=== PATIENT | male | born 1960 | race Caucasian/White ===

== ENCOUNTER 2020-03-07 08:37 | Outpatient (REF) | payer OTHER, SELFPAY | END 2020-03-07 08:38 | disposition home or self-care (01) | LOC: HO.HMGCLDS 08:37 | PROVIDERS: PCP Internal Medicine; Visit Provider Internal Medicine | DX: Z20.828 Contact with and (suspected) exposure to other viral communicable diseases (principal) | CPT/HCPCS: C9803; U0003 ==

== ENCOUNTER 2020-04-03 08:04 | Outpatient (REF) | payer OTHER, SELFPAY ==
[2020-04-03 11:27] LABS: Hematocrit 41.5 % (42-52); Hemoglobin 13.9 g/dl (14.0-18.0); Mean Corpuscular HGB Conc 33.5 g/dl (31.0-36.0); Mean Corpuscular Hemoglobin 30.3 pg (27.0-33.0); Mean Corpuscular Volume 90.6 fL (80-98); Mean Platelet Volume 10.6 fL (9.4-12.4); Platelet Count 250 X10*3/uL (160-400); Red Blood Count 4.58 X10*6/uL (4.60-5.80); Red Cell Distribution Width 12.4 % (11.0-16.0)
[2020-04-03 11:44] LABS: Alanine Aminotransferase 23 U/L (0-40); Anion Gap 11 (12-20); Aspartate Amino Transferase 20 U/L (5-37); Blood Urea Nitrogen 16 mg/dL (9-16); Calcium 9.3 mg/dL (8.4-10.2); Carbon Dioxide 28 mmol/L (22-29); Chloride 102 mmol/L (96-108); Cholesterol 200 mg/dL; Estimated Glomerular Filt Rate > 60; Glucose Fasting 103 mg/dL (60-99); HDL Cholesterol 34 mg/dL; LDL Cholesterol Calculated 104 mg/dl; Potassium 4.8 mmol/l (3.3-5.1); Sodium 136 mmol/L (135-145); Triglycerides 311 mg/dL
[2020-04-03 12:03] LABS: Estimated Average Glucose 123 mg/dL; Hemoglobin A1c % 5.9 %
[2020-04-04 07:27] LABS: LDL Cholesterol Direct 113 mg/dL (<100)
== END 2020-04-03 08:05 | disposition home or self-care (01) ==
LOC: HO.HMGCLDS 08:04
PROVIDERS: PCP Internal Medicine; Visit Provider Internal Medicine
DX: E11.9 Type 2 diabetes mellitus without complications (principal); E78.2 Mixed hyperlipidemia; F41.1 Generalized anxiety disorder; I10 Essential (primary) hypertension; D51.0 Vitamin B12 deficiency anemia due to intrinsic factor deficiency
CPT/HCPCS: 36415; 80048; 80061; 83036; 83721; 84450; 84460; 85027

== ENCOUNTER 2020-09-12 07:05 | Outpatient (REF) | payer OTHER, SELFPAY ==
[2020-09-12 12:31] LABS: Estimated Average Glucose 120 mg/dL; Hemoglobin A1c % 5.8 %
[2020-09-12 12:37] LABS: Creatinine Urine 116.48 mg/dL; Microalbum/Creatinine Ratio Ur 112.4 ug/mg cr
[2020-09-12 12:40] LABS: Cholesterol 342 mg/dL
[2020-09-12 12:43] LABS: Alanine Aminotransferase 21 U/L (0-40); Albumin Level 4.4 g/dL (3.5-5.0); Alkaline Phosphatase 54 U/L (39-117); Anion Gap 18 (12-20); Aspartate Amino Transferase 18 U/L (5-37); Bilirubin Total 0.4 mg/dL (0.0-1.0); Blood Urea Nitrogen 21 mg/dL (9-16); Calcium 9.5 mg/dL (8.4-10.2); Carbon Dioxide 22 mmol/L (22-29); Chloride 103 mmol/L (96-108); Estimated Glomerular Filt Rate > 60; Glucose Fasting 108 mg/dL (60-99); Potassium 4.9 mmol/L (3.3-5.1); Sodium 138 mmol/L (135-145); Total Protein 7.4 g/dL (6.5-8.0)
[2020-09-12 13:03] LABS: Vitamin D 25-OH Total 40.7 ng/mL (>30)
[2020-09-12 13:15] LABS: HDL Cholesterol 26 mg/dL; Triglycerides 2318 mg/dL
[2020-09-12 14:01] LABS: Folate 14.5 ng/mL (> or = 4.0); Vitamin B12 522 pg/mL (200-900)
== END 2020-09-12 07:06 | disposition home or self-care (01) ==
LOC: HO.HMGCLDS 07:05
PROVIDERS: PCP Internal Medicine; Visit Provider Internal Medicine
DX: D51.0 Vitamin B12 deficiency anemia due to intrinsic factor deficiency (principal); E11.9 Type 2 diabetes mellitus without complications; E78.2 Mixed hyperlipidemia; F41.1 Generalized anxiety disorder; I10 Essential (primary) hypertension
CPT/HCPCS: 36415; 80053; 80061; 82043; 82306; 82607; 82746; 83036

== ENCOUNTER 2021-03-12 07:21 | Outpatient (REF) | payer OTHER, SELFPAY ==
[2021-03-12 12:21] LABS: Alanine Aminotransferase 28 U/L (0-40); Anion Gap 14 (12-20); Aspartate Amino Transferase 19 U/L (5-37); Blood Urea Nitrogen 16 mg/dL (9-16); Calcium 9.5 mg/dL (8.4-10.2); Carbon Dioxide 25 mmol/L (22-29); Chloride 104 mmol/L (96-108); Cholesterol 240 mg/dL; Estimated Glomerular Filt Rate > 60; Glucose Fasting 131 mg/dL (60-99); HDL Cholesterol 36 mg/dL; LDL Cholesterol Calculated 147 mg/dl; Potassium 4.3 mmol/L (3.3-5.1); Sodium 139 mmol/L (135-145); Triglycerides 287 mg/dL
[2021-03-12 12:53] LABS: Estimated Average Glucose 123 mg/dL; Hemoglobin A1c % 5.9 %
== END 2021-03-12 07:22 | disposition home or self-care (01) ==
LOC: HO.HMGCLDS 07:21
PROVIDERS: PCP Internal Medicine; Visit Provider Internal Medicine
DX: E78.2 Mixed hyperlipidemia (principal); I10 Essential (primary) hypertension; E11.9 Type 2 diabetes mellitus without complications
CPT/HCPCS: 36415; 80048; 80061; 83036; 84450; 84460

== ENCOUNTER 2022-03-28 07:02 | Outpatient (REF) | payer OTHER, SELFPAY ==
[2022-03-28 11:56] LABS: Estimated Average Glucose 123 mg/dL; Hemoglobin A1c % 5.9 %
[2022-03-28 12:10] LABS: Creatinine Urine 105.97 mg/dL; Microalbum/Creatinine Ratio Ur 70.7 ug/mg cr
[2022-03-28 12:42] LABS: Alanine Aminotransferase 23 U/L (0-40); Anion Gap 12 (12-20); Aspartate Amino Transferase 17 U/L (5-37); Blood Urea Nitrogen 17 mg/dL (9-16); Calcium 9.6 mg/dL (8.4-10.2); Carbon Dioxide 28 mmol/L (22-29); Chloride 103 mmol/L (96-108); Cholesterol 197 mg/dL; Estimated Glomerular Filt Rate > 60; Glucose Fasting 116 mg/dL (60-99); HDL Cholesterol 40 mg/dL; LDL Cholesterol Calculated 96 mg/dl; Potassium 4.5 mmol/L (3.3-5.1); Sodium 138 mmol/L (135-145); Triglycerides 309 mg/dL
== END 2022-03-28 07:03 | disposition home or self-care (01) ==
LOC: HO.HMGCLDS 07:02
PROVIDERS: PCP Internal Medicine; Visit Provider Internal Medicine
DX: E11.9 Type 2 diabetes mellitus without complications (principal); E78.2 Mixed hyperlipidemia; I10 Essential (primary) hypertension
CPT/HCPCS: 36415; 80048; 80061; 82043; 83036; 84450; 84460

== ENCOUNTER 2022-07-12 07:54 | Outpatient (REF) | payer OTHER, SELFPAY ==
[2022-07-12 12:21] LABS: Estimated Average Glucose 137 mg/dL; Hemoglobin A1c % 6.4 %
[2022-07-12 12:49] LABS: Alanine Aminotransferase 22 U/L (0-40); Anion Gap 13 (12-20); Aspartate Amino Transferase 19 U/L (5-37); Blood Urea Nitrogen 17 mg/dL (9-16); Calcium 9.6 mg/dL (8.4-10.2); Carbon Dioxide 28 mmol/L (22-29); Chloride 104 mmol/L (96-108); Cholesterol 181 mg/dL; Estimated Glomerular Filt Rate > 60; Glucose Fasting 120 mg/dL (60-99); HDL Cholesterol 33 mg/dL; LDL Cholesterol Calculated 103 mg/dl; Sodium 140 mmol/L (135-145); Triglycerides 228 mg/dL
[2022-07-12 12:57] LABS: Folate 11.6 ng/mL (> or = 4.0); PSA,Total (Free>4and<10) 0.99 ng/mL (0.00-4.00); Vitamin B12 651 pg/mL (200-900); Vitamin D 25-OH Total 50.6 ng/mL (>30)
== END 2022-07-12 07:55 | disposition home or self-care (01) ==
LOC: HO.HMGCLDS 07:54
PROVIDERS: PCP Internal Medicine; Visit Provider Internal Medicine
DX: Z00.01 Encounter for general adult medical examination with abnormal findings (principal); Z12.5 Encounter for screening for malignant neoplasm of prostate; D51.0 Vitamin B12 deficiency anemia due to intrinsic factor deficiency; E11.9 Type 2 diabetes mellitus without complications; E66.9 Obesity, unspecified; E78.2 Mixed hyperlipidemia; F41.1 Generalized anxiety disorder; G47.33 Obstructive sleep apnea (adult) (pediatric); I10 Essential (primary) hypertension; Z99.89 Dependence on other enabling machines and devices
CPT/HCPCS: 36415; 80048; 80061; 82306; 82607; 82746; 83036; 84153; 84450; 84460

== ENCOUNTER 2022-07-15 12:43 | Outpatient (AMB) | payer OTHER, SELFPAY ==
--- NOTE | 2022-07-15 12:57 | A.OFFPC_ITS ---
Vital Signs 07/15/22 13:13 Height 5 ft 8 in Weight 221 lb 4 oz BMI 33.6 BP 130/80 Blood Pressure Location Rt brachial Position Sitting Pulse 66 Pulse Source Pulse Oximeter Pulse Oximetry (%) 99 Oxygen Delivery Method Room Air Intake Visit Reasons: 2 month follow up HTN, Lipids Intake Note: Pt is here today for his 2 months f/u HTN and lipids Allergies amoxicillin Adverse Reaction (Mild, Verified 01/05/23 15:40) Stomach Upset Medication List - Last Reconciled 07/16/22 by Christy Rivera MD blood sugar diagnostic As directed cholecalciferol (vitamin D3) 50 mcg PO DAILY citalopram 20 mg PO DAILY cyanocobalamin (vitamin B-12) ER 1,000 mcg PO DAILY diclofenac potassium 50 mg PO TID PRN lisinopril 5 mg PO DAILY metformin 1,000 mg PO DAILY omega-3 acid ethyl esters 2 caps PO BID 90 days rosuvastatin 10 mg PO DAILY sildenafil 100 mg PO DAILY PRN Tobacco use date assessed: 07/15/22 HPI 2 month follow up HTN, Lipids HPI Details 62-year-old male here today for follow-u p on his blood pressure , diabetes mellitus and cholesterol levels. Has been compliant with taking his medications currently on lisinopril 5 mg daily, rosuvastatin 10 mg daily and Garfield 3 fatty acid supplements and metformin. Has been compliant with diet, and has no complaints at present time, except for occasional difficulty in maintaining penile erection during sexual intercourse. Requesting a prescription for sildenafil to try. [facility] Medical History Erectile dysfunction Obesity (BMI 30-39.9) RADHA on CPAP Generalized anxiety disorder Pernicious anemia Essential hypertension Type 2 diabetes mellitus without complication, with no history of insulin use Mixed dyslipidemia Surgical History Hx of colonoscopy H/O shoulder surgery History of cataract surgery History of carpal tunnel surgery Status post cervical discectomy Family History Father Diabetes mellitus Atherosclerotic coronary vascular disease Prostate cancer Social History Housing: House Alcohol intake: current Alcohol intake frequency: a few times a month Patient Tobacco Use Status: Former Tobacco user Years Smoked: 5 yrs e-Cigarette/Vaping Use: Never Used Substance Use Type: Marijuana service: No Current occupational status: disabled Cognitive needs: No Hearing needs: No Vision needs: No Questionnaire Thrive Questionnaire Date Thrive assessed: 05/17/22 AUDIT C Alcohol Use Questionnaire (AUDIT-C) 1. How often do you have a drink containing alcohol?: Never Total Score: 0 LESLIE-7 AMB Questionnaire LESLIE-7 Date LESLIE - 7 assessed: 05/17/22 Source: Developed by Drs. Rehan Shi, Lynda Booth, Kit Brush and colleagues, with an educational miesha from [employer]. Review of Systems Const Denies body aches, Denies fatigue, Denies fever(s) and Denies headache(s) Eyes Denies change in vision ENT Denies dizziness, Denies headache(s), Denies nasal congestion, Denies nasal discharge and Denies sore throat Card Denies chest pain, Denies lightheadedness, Denies palpitations and Denies dyspnea Resp Denies chest congestion, Denies cough, Denies dyspnea and Denies wheezing GI Denies abdominal pain, Denies change in bowel habits and Denies heartburn Denies dysuria, Denies urinary frequency and Denies urinary urgency Musc Denies back pain, Denies myalgias, Denies arthralgias, Denies joint swelling and Denies limited range of motion Skin/Breast Denies lesions and Denies rash Neuro Denies dizziness and Denies headache(s) Psych Reports no additional complaints Endo Denies fatigue, Denies polydipsia, Denies polyuria and Denies palpitations Pelon/Lymph Denies easy bruising Aller/Immun Denies seasonal rhinorrhea and Denies wheezing Physical exam (Primary Care) Vital Signs: Last Vital Signs Pulse 66 07/15/22 13:13 BP 130/80 07/15/22 13:13 Pulse Ox 99 07/15/22 13:13 Oxygen Delivery Method Room Air 07/15/22 13:13 BMI result Body Mass Index 33.6 Tobacco/Smoking Status: Tobacco use Status Tobacco use date assessed 07/15/22 07/15/22 12:59 Patient Tobacco Use Status Former Tobacco user 07/15/22 12:59 e-Cigarette/Vaping Use Never Used 07/15/22 12:59 Thrive Assessment: Date of Thrive Assessment Date Thrive assessed 05/17/22 07/15/22 12:59 Const General: cooperative, no acute distress, alert and Physically active Nutritional Appearance: obese Orientation/consciousness: patient oriented x3 Limitations: no limitations HENMT Head: Yes normocephalic Ears: hearing grossly normal bilaterally, external ears normal, TM's normal bilaterally and EAC's normal General nose exam: Normal external nose present and No nasal discharge present Face and sinus: Yes face symmetric Mouth: Normal oral and palatal mucosa present, tongue normal, oropharynx normal and moist mucous membranes Eyes Conjunctivae: conjunctivae normal Sclerae: sclerae normal Pupils: Equal, round and reactive pupils present EOM: EOMs intact bilaterally Neck Neck: Yes full ROM and Yes no lymphadenopathy Thyroid: Thyroid normal Carotids: normal carotid upstroke Lymphatic: no lymphadenopathy noted Chest Chest palpation & inspection: normal inspection of the chest Resp Effort & Inspection: normal respiratory effort and able to speak in complete sentences Auscultation: clear to auscultation bilaterally Cardio Jugular venous distension: no JVD Rate: regular rate Rhythm: regular rhythm Heart sounds: S1 normal heart sound present and S2 normal heart sound present GI Inspection: Yes normal to inspection and Yes other (presence of diastasis recti) Palpation (GI): Soft to palpation Auscultation: normal bowel sounds General: Yes no CVA tenderness Male General Exam: Yes normal external exam Back/Spine/Pelvis Back: no CVA tenderness and No back tenderness Thoracic/Lumbar Spine: thoraco-lumbar ROM normal and straight leg raise negative bilaterally Skin General skin exam: no rashes or lesions noted Neuro General: patient oriented x3, gait normal, tone normal, moves all extremities, Normal light touch and pain sensation, no focal motor deficits and CN's II-XI intact bilaterally Cranial nerves: Yes Equal, round and reactive pupils present Cognition (Neuro): normal cognition Gait exam (Neuro): Normal gait present Motor exam (neuro): 5/5 motor strength present throughout Extrem General: Yes normal to inspection, Yes full ROM, Yes no pedal edema and Yes normal gait Psych Appearance: grossly normal Mental Status: mental status grossly normal Speech and movement: Normal speech and movement present Affect: normal affect Thought process: Normal thought process present Results Reviewed Results Reviewed: Laboratory Tests 07/12/22 08:01 Estimat Average Glucose 137 Hemoglobin A1c % 6.4 Name: Beck Sagastume Age/Sex: 61/M : 1960 Unit#: [id number] Attend Dr: Chirsty Rivera MD Re07/12/22 Status: DEP [facility] Disch: SPEC : [id number] JAMAL: 07/12/22 STATUS: COMP REQ : [id number] RECD: 07/12/22-[address]: Christy Rivera MD COMP: 07/12/22-1256 ENTERED: 07/12/22-[address]: ORDERED: Met Prof Fast, AST, ALT, Lipid Panel, PSA W/ REFLEX, B12FOL, Vitamin D 2 Test Result Flag Reference Site Sodium 140 135-145 mmol/L Potassium 5.0 3.3-5.1 mmol/L CL 104 96-108 mmol/L CO2 28 22-29 mmol/L Gap 13 12-20 BUN 17 H 9-16 mg/dL Creat 0.96 0.5-1.4 mg/dL EGFR > 60 NOTE: For -Emirati individuals, multiply the result by 1.210. Chronic Kidney Disease: Estimated GFR < 60 mL/ min/1.73m2 Severe Kidney Disease: Estimated GFR < 15 mL/min/1.73m2 FBS 120 H 60-99 mg/dL A fasting glucose from 100-125 mg/dl is considered impaired (pre-diabetes). CA 9.6 8.4-10.2 mg/dL AST (GOT) 19 5-37 U/L ALT (GPT) 22 0-40 U/L Triglyceride 228 mg/dL Desirable Triglyceride: less than 150 mg/dL Borderline High Triglyceride 150-199 mg/dL High Triglyceride: 200-499 mg/dL Very High Triglyceride: greater than or equal to 5OO mg/dL Chol 181 mg/dL Desirable Cholesterol: less than 200 mg/dL Borderline High Cholesterol: 200-239 mg/dL High Cholesterol: greater than 239 mg/dL LDL Calculated 103 mg/dl Desirable LDL: less than 100 mg/dL Near Optimal/Above Optimal LDL: 110-129 mg/dL Borderline High LDL: 130-159 mg/dL High LDL: 160-189 mg/dL Very High LDL: greater than or equal to 190 mg/dL HDL 33 mg/dL Desirable HDL: greater than 40 mg/dL Note: This HDL assay may give artificially low results in patients with liver disease. PSA W/ REFLEX 0.99 0.00-4.00 ng/mL A Free PSA was not performed: The percentage of Free PSA can be used to enhance the differentiation of prostate cancer from benign prostatic disease in subjects whose PSA levels are between 4.0 and 10.0 ng/mL. For subjects whose PSA levels are below 4.0 or above 10.0 ng/mL, the risk of prostate cancer is determined on the basis of the PSA alone. Therefore the % Free PSA is recommended only for those subjects whose PSA levels are between 4.0 and 10.0 ng/mL. PSA methodology: Garza Alinity i Chemiluminescent Microparticle Immunoassay (CMIA) Vitamin B12 651 200-900 pg/mL NORMAL 200-900 PG/ML INDETERMINATE 160-199 PG/ML DEFICIENT < 160 PG/ML Folate 11.6 > or = 4.0 ng/mL Reference Values: > or = 4.0 ng/mL < 4.0 ng/mL suggests folate deficiency Methotrexate, aminopterin and folinic acid (leucovorin) are chemotherapeutic agents whose molecular structures are similar to folate; therefore, the [facility] folate assay cannot be used for patients using these drugs. Vit D 25-OH Tot 50.6 >30 ng/mL Health Based Reference Values* < 20 ng/mL Deficient 20-30 ng/mL Insufficient > 30 ng/mL Sufficient Assessment and Plan Assessment & Plan (1) Essential hypertension: Code(s): I10 - Essential (primary) hypertension Plan: Blood pressure at goal of less than 130/80. Continue with current medication. Reinforced importance of following a low sodium diet, getting regular exercise, and lowering stress levels. (2) Type 2 diabetes mellitus without complication, with no history of insulin use: Code(s): E11.9 - Type 2 diabetes mellitus without complications Plan: Recent lab results reviewed with patient, with sugar and hemoglobin A1c stable and at goal . Metformin and reinforced diabetic diet and regular exercise with patient. Counseled regarding importance of yearly diabetes retinopathy screening. Patient advised to inspect feet daily, for any signs of injury, callus or infection. Compliance with diet and regular exercise again stressed. Blood pressure goal is less than 130/80, goal LDL is less than 100 and goal hemoglobin A1c is less than 7% follow-up appointment made in-3--months, after fasting labs done. (3) Mixed dyslipidemia: Code(s): E78.2 - Mixed hyperlipidemia Plan: Reviewed recent fasting lipid profile with patient with LDL cholesterol at 103 mg/dL and low good cholesterol at 33 . Continue rosuvastatin and Garfield 3 fatty acids and past importance of following a low-cholesterol diet and getting regular exercise, at least 30 minutes 3 to 4 times a week. Advised patient to make healthy food choices, eat more fruits, vegetables, whole grains, wild caught fish and low-fat dairy. Limit amount of meat and fried or fatty food products, as well as processed foods and fast foods. Follow-up scheduled with repeat fasting lipid panel in 3 months. (4) Erectile dysfunction: Code(s): N52.9 - Male erectile dysfunction, unspecified Qualifiers: Erectile dysfunction type: unspecified Qualified Code(s): N52.9 - Male erectile dysfunction, unspecified Plan: Prescription sent for sildenafil 100 mg per tablet to take 1 tablet as needed 30 minutes to 1 hour prior to sexual intercourse Orders: Orders Hemoglobin A1c 3 Months N52.9 - Male erectile dysfunction, unspecified, E66.9 - Obesity, unspecified, I10 - Essential (primary) hypertension, E11.9 - Type 2 diabetes mellitus without complications, E78.2 - Mixed hyperlipidemia Lipid Panel 3 Months N52.9 - Male erectile dysfunction, unspecified, E66.9 - Obesity, unspecified, I10 - Essential (primary) hypertension, E11.9 - Type 2 diabetes mellitus without complications, E78.2 - Mixed hyperlipidemia Microalbumin, Random (w Creat) 3 Months N52.9 - Male erectile dysfunction, unspecified, E66.9 - Obesity, unspecified, I10 - Essential (primary) hypertension, E11.9 - Type 2 diabetes mellitus without complications, E78.2 - Mixed hyperlipidemia Testosterone, Free/Total 3 Months N52.9 - Male erectile dysfunction, un specified, E66.9 - Obesity, unspecified, I10 - Essential (primary) hypertension, E11.9 - Type 2 diabetes mellitus without complications, E78.2 - Mixed hyperlipidemia Alanine Aminotransferase 3 Months N52.9 - Male erectile dysfunction, unspecified, E66.9 - Obesity, unspecified, I10 - Essential (primary) hypertension, E11.9 - Type 2 diabetes mellitus without complications, E78.2 - Mixed hyperlipidemia Aspartate Amino Transferase 3 Months N52.9 - Male erectile dysfunction, unspecified, E66.9 - Obesity, unspecified, I10 - Essential (primary) hy pertension, E11.9 - Type 2 diabetes mellitus without complications, E78.2 - Mixed hyperlipidemia Medications: New sildenafil administer 30 minutes to 4 hours before activity 100 mg PO DAILY PRN 10 tabs 0RF sexual activity N52.9 - Male erectile dysfunction, unspecified Coding Level of Care Code Est Pt Level 4 (98672) Diagnoses Essential hypertension I10 Type 2 diabetes mellitus without complication, with no history of insulin use E11.9 Mixed dyslipidemia E78.2 Erectile dysfunction, unspecified erectile dysfunction type N52.9 Erectile dysfunction type: unspecified
[2022-07-15 13:13] VITALS: BP 130/80; PULSE 66; O2SAT 99; BMI 33.6
== END 2022-07-15 14:05 | disposition home or self-care (01) ==
LOC: HO.HMGC 12:43
PROVIDERS: PCP Internal Medicine; Visit Provider Internal Medicine
DX: I10 Essential (primary) hypertension (principal); E11.9 Type 2 diabetes mellitus without complications; E78.2 Mixed hyperlipidemia; N52.9 Male erectile dysfunction, unspecified
CPT/HCPCS: 99214

== ENCOUNTER 2023-01-03 10:29 | Outpatient (AMB) | payer OTHER, SELFPAY ==
--- NOTE | 2023-01-03 10:48 | A.OFFPC_ITS ---
Vital Signs 01/03/23 11:00 Height 5 ft 8 in Weight 223 lb BMI 33.9 BP 114/62 Blood Pressure Location Rt brachial Position Sitting Pulse 68 Pulse Source Pulse Oximeter Pulse Oximetry (%) 98 Oxygen Delivery Method Room Air Intake Visit Reasons: 3m follow up lipids,htn Intake Note: Pt is here today for his HTN: Pt didn't get his labs done Allergies amoxicillin Adverse Reaction (Mild, Verified 01/05/23 15:40) Stomach Upset Medication List - Last Reconciled 01/05/23 by Christy Rivera MD blood sugar diagnostic As directed cholecalciferol (vitamin D3) 50 mcg PO DAILY citalopram 20 mg PO DAILY cyanocobalamin (vitamin B-12) ER 1,000 mcg PO DAILY diclofenac potassium 50 mg PO TID PRN lisinopril 5 mg PO DAILY metformin 1,000 mg PO DAILY omega-3 acid ethyl esters 2 caps PO BID 90 days rosuvastatin 10 mg PO DAILY sildenafil 100 mg PO DAILY PRN Tobacco use date assessed: 01/03/23 Dental Screening Dental Screen Date: 01/03/23 Did you have a dental visit in the last 12 months?: Yes Did you have a dental problem in the last 6 months where you did not have access to dental care?: Yes Was dental information given to patient?: Patient has dentist HPI 3m follow up lipids,htn HPI Details 62-year-old male with dyslipidemia, hyp ertension, has obstructive apnea on CPAP , obesity, here today for his follow-up. Patient however forgot to have his labs done prior to visit. Blood pressure has been stable and controlled on present treatment. He has been feeling well with no complaints at present time. He also states that his CPAP is not working as well as it was within the past, air leaks, needs a referral for follow-up with the sleep clinic [facility] Medical History Erectile dysfunction Obesity (BMI 30-39.9) RADHA on CPAP Generalized anxiety disorder Pernicious anemia Essential hypertension Type 2 diabetes mellitus without complication, with no history of insulin use Mixed dyslipidemia Surgical History Hx of colonoscopy H/O shoulder surgery History of cataract surgery History of carpal tunnel surgery Status post cervical discectomy Family History Father Diabetes mellitus Atherosclerotic coronary vascular disease Prostate cancer Social History Housing: House Alcohol intake: current Alcohol intake frequency: a few times a month Patient Tobacco Use Status: Former Tobacco user Years Smoked: 5 yrs e-Cigarette/Vaping Use: Never Used Substance Use Type: Marijuana service: No Current occupational status: disabled Cognitive needs: No Hearing needs: No Vision needs: No Questionnaire Thrive Questionnaire Date Thrive assessed: 05/17/22 AUDIT C Alcohol Use Questionnaire (AUDIT-C) 1. How often do you have a drink containing alcohol?: Monthly or less 2. How many drinks containing alcohol do you have on a typical day when you are drinking?: 1 or 2 Total Score: 1 LESLIE-7 AMB Questionnaire LESLIE-7 Date LESLIE - 7 assessed: 05/17/22 Source: Developed by Drs. Rehan Shi, Lynda Booth, Kit Brush and colleagues, with an educational miesha from [employer]. Review of Systems Const Denies body aches, Denies fatigue, Denies fever(s), Denies headache(s) and Denies weight loss Eyes Details: sees Dr Mulligan for dm retinopathy screening Denies change in vision ENT Denies dizziness, Denies headache(s), Denies nasal congestion, Denies nasal discharge and Denies sore throat Card Denies chest pain, Denies lightheadedness, Denies palpitations and Denies dyspnea Resp Denies chest congestion, Denies cough, Denies dyspnea and Denies wheezing GI Denies abdominal pain, Denies change in bowel habits and Denies heartburn Denies dysuria, Denies urinary frequency and Denies urinary urgency Musc Denies back pain, Denies myalgias, Denies arthralgias, Denies joint swelling and Denies limited range of motion Skin/Breast Denies lesions and Denies rash Neuro Denies dizziness and Denies headache(s) Psych Reports no additional complaints Endo Denies fatigue, Denies polydipsia, Denies polyuria and Denies palpitations Pelon/Lymph Denies easy bruising Aller/Immun Denies seasonal rhinorrhea and Denies wheezing Physical exam (Primary Care) Vital Signs: Last Vital Signs Pulse 68 01/03/23 11:00 BP 114/62 01/03/23 11:00 Pulse Ox 98 01/03/23 11:00 Oxygen Delivery Method Room Air 01/03/23 11:00 BMI result Body Mass Index 33.9 Tobacco/Smoking Status: Tobacco use Status Tobacco use date assessed 01/03/23 01/03/23 11:01 Patient Tobacco Use Status Former Tobacco user 01/03/23 10:48 e-Cigarette/Vaping Use Never Used 01/03/23 10:48 Thrive Assessment: Date of Thrive Assessment Date Thrive assessed 05/17/22 01/03/23 10:48 Const General: no acute distress, alert and Physically active Nutritional Appearance: obese Orientation/consciousness: patient oriented x3 HENMT Head: Yes normocephalic Ears: external ears normal, TM's normal bilaterally and EAC's normal General nose exam: Normal external nose present and No nasal discharge present Face and sinus: Yes face symmetric Mouth: Normal oral and palatal mucosa present, tongue normal, oropharynx normal and moist mucous membranes Eyes Conjunctivae: conjunctivae normal Sclerae: sclerae normal Pupils: Equal, round and reactive pupils present EOM: EOMs intact bilaterally Neck Neck: Yes full ROM and Yes no lymphadenopathy Thyroid: Thyroid normal Carotids: normal carotid upstroke Lymphatic: no lymphadenopathy noted Resp Effort & Inspection: normal respiratory effort and able to speak in complete sentences Auscultation: clear to auscultation bilaterally Cardio Jugular venous distension: no JVD Rate: regular rate Rhythm: regular rhythm Heart sounds: S1 normal heart sound present and S2 normal heart sound present GI Inspection: Yes normal to inspection and Yes other (presence of diastasis recti) Palpation (GI): Soft to palpation Auscultation: normal bowel sounds General: Yes no CVA tenderness Male General Exam: Yes normal external exam Back/Spine/Pelvis Back: no CVA tenderness and No back tenderness Thoracic/Lumbar Spine: thoraco-lumbar ROM normal and straight leg raise negative bilaterally Skin General skin exam: no rashes or lesions noted Neuro General: patient oriented x3, gait normal, tone normal, moves all extremities, Normal light touch and pain sensation, no focal motor deficits and CN's II-XI intact bilaterally Cranial nerves: Yes Equal, round and reactive pupils present Cognition (Neuro): normal cognition Gait exam (Neuro): Normal gait present Motor exam (neuro): 5/5 motor strength present throughout Extrem General: Yes normal to inspection, Yes full ROM, Yes no pedal edema and Yes normal gait Psych Appearance: grossly normal and well kempt Mental Status: mental status grossly normal Affect: normal affect Results AMB Hemoglobin A1c AMB Hemoglobin A1c 6.0 % Last Edit by Jamilah Traylor CMA on 01/03/23 11:32 Results Reviewed Results Reviewed: Laboratory Last Values Hgb A1c (Clinic) 6.0 % (4.0-6.0) 01/03/23 11:30 Assessment and Plan Assessment & Plan (1) Essential hypertension: Code(s): I10 - Essential (primary) hypertension Plan: Blood pressure at goal of less than 130/80. Continue with current medication. Reinforced importance of following a low sodium diet, getting regular exercise, and lowering stress levels. (2) RADHA on CPAP: Code(s): G47.33 - Obstructive sleep apnea (adult) (pediatric); Z99.89 - Dependence on other enabling machines and devices Plan: Has been diagnosed with obstructive sleep apnea several years ago, needs a follow-up (3) Obesity (BMI 30-39.9): Code(s): E66.9 - Obesity, unspecified Plan: Discussed need to increase activity . Recommended focusing on improving your health instead of dieting. : Eat Mediterranean diet, limit foods high in fat, sugar, and calories, eat slowly, pay attention to portion sizes, plan your meals ahead of time, start regular physical activity 150 minutes of moderate intensity exercise or 90 minutes/week of vigorous exercise and increase water intake. (4) Generalized anxiety disorder: Code(s): F41.1 - Generalized anxiety disorder Plan: controlled on citalopram 20 mg daily (5) Pernicious anemia: Code(s): D51.0 - Vitamin B12 deficiency anemia due to intrinsic factor deficiency Plan: Reminded to get his labs done, continued on daily B12 supplements (6) Type 2 diabetes mellitus without complication, with no history of insulin use: Code(s): E11.9 - Type 2 diabetes mellitus without complications Plan: Reminded to get his fasting labs done, continue metformin 1000 mg once a day (7) Mixed dyslipidemia: Code(s): E78.2 - Mixed hyperlipidemia Plan: Reminded to get his fasting profile check . Continue with rosuvastatin 10 mg daily , in addition to adherence to low-cholesterol diet and regular exercise, at least 30 minutes 3 to 4 times a week. Advised patient to make healthy food choices, eat more fruits, vegetables, whole grains, wild caught fish and low- fat dairy. Limit amount of meat and fried or fatty food products, as well as processed foods and fast foods. Orders: Orders AMB Hemoglobin A1c 01/03/23 E11.9 - Type 2 diabetes mellitus without compl ications Referrals Sleep Medicine Referral G47.33 - Obstructive sleep apnea (adult) (pediatric), Z99.89 - Dependence on other enabling machines and devices Coding Level of Care Code Est Pt Level 4 (76974) Diagnoses Essential hypertension I10 RADHA on CPAP G47.33; Z99.89 Obesity (BMI 30-39.9) E66.9 Generalized anxiety disorder F41.1 Pernicious anemia D51.0 Type 2 diabetes mellitus without complication, with no history of insulin use E11.9 Mixed dyslipidemia E78.2
[2023-01-03 11:00] VITALS: BP 114/62; PULSE 68; O2SAT 98; BMI 33.9
== END 2023-01-03 15:21 | disposition home or self-care (01) ==
PROVIDERS: PCP Internal Medicine; Visit Provider Internal Medicine
DX: E11.9 Type 2 diabetes mellitus without complications (principal)
CPT/HCPCS: 83036; 99214

== ENCOUNTER 2023-02-17 07:17 | Outpatient (REF) | payer OTHER, SELFPAY ==
[2023-02-17 11:44] LABS: Estimated Average Glucose 126 mg/dL
[2023-02-17 11:54] LABS: Alanine Aminotransferase 20 U/L (0-40); Aspartate Amino Transferase 20 U/L (5-37); Cholesterol 188 mg/dL (<200); HDL Cholesterol 35 mg/dL (>40); LDL Cholesterol Calculated 92 mg/dL (<100); Triglycerides 306 mg/dL (<150)
[2023-02-17 12:21] LABS: Creatinine Urine 74.48 mg/dL; Microalbum/Creatinine Ratio Ur 79.2 ug/mg cr (<30)
[2023-02-25 14:52] LABS: Testosterone, Total 176 ng/dL (250-1100)
== END 2023-02-17 07:18 | disposition home or self-care (01) ==
LOC: HO.HMGCLDS 07:17
PROVIDERS: PCP Internal Medicine; Visit Provider Internal Medicine
DX: N52.9 Male erectile dysfunction, unspecified (principal); E66.9 Obesity, unspecified; I10 Essential (primary) hypertension; E11.9 Type 2 diabetes mellitus without complications; E78.2 Mixed hyperlipidemia
CPT/HCPCS: 36415; 80061; 82043; 82570; 83036; 84402; 84403; 84450; 84460

== ENCOUNTER 2024-02-11 11:53 | Outpatient (AMB) | payer OTHER, SELFPAY ==
[2024-02-11 12:33] VITALS: BP 124/74; PULSE 66; O2SAT 96; BMI 32.2
--- NOTE | 2024-02-11 12:33 | MHC.PC.OV ---
Vital Signs 02/11/24 12:33 Height 5 ft 8 in Weight 212 lb BMI 32.2 BP 124/74 Blood Pressure Location Rt brachial Position Sitting Pulse 66 Pulse Source Pulse Oximeter Pulse Oximetry (%) 96 Oxygen Delivery Method Room Air Intake Visit Reasons: Rsched from 12/24 -- Se comments Intake Note: Pt is here today for his PE/DM Allergies amoxicillin Adverse Reaction (Mild, Verified 02/11/24 12:52) Stomach Upset Medication List - Last Reconciled 02/11/24 by Christy Rivera MD blood sugar diagnostic As directed cholecalciferol (vitamin D3) 50 mcg PO DAILY citalopram 20 mg PO DAILY cyanocobalamin (vitamin B-12) ER 1,000 mcg PO DAILY lisinopril 5 mg PO DAILY metformin 1,000 mg PO DAILY omega-3 acid ethyl esters 2 caps PO BID 90 days rosuvastatin 10 mg PO DAILY Tobacco use date assessed: 02/11/24 Dental Screening Dental Screen Date: 02/11/24 Did you have a dental visit in the last 12 months?: Yes Did you have a dental problem in the last 6 months where you did not have access to dental care?: No Was dental information given to patient?: Patient has dentist HPI Rsched from 12/24 -- Se comments HPI Details 63-year-old male with diabetes mellitus, mixed dyslipidemia, hypogonadism, obesity, obstructive sleep apnea on CPAP, generalized anxiety disorder, history of pernicious anemia, hypertension, here today for his physical exam and follow-up. He has been feeling well, with no complaints at present time. Hemoglobin A1c today is at 6.2%. He sees Dr. Mulligan for his routine diabetes retinopathy screening and eye exam. Up-to-date with his screening colonoscopy, done in [address] Mcqueen with removal of hyperplastic polyp and with also showed internal hemorrhoids, repeat exam due again in 2028. [facility] Medical History Low serum testosterone level in male Erectile dysfunction Obesity (BMI 30-39.9) RADHA on CPAP Generalized anxiety disorder Pernicious anemia Essential hypertension Type 2 diabetes mellitus without complication, with no history of insulin use Mixed dyslipidemia Surgical History Hx of colonoscopy H/O shoulder surgery History of cataract surgery History of carpal tunnel surgery Status post cervical discectomy Family History Father Diabetes mellitus Atherosclerotic coronary vascular disease Prostate cancer Social History Housing: House Alcohol intake: current Alcohol intake frequency: a few times a month Patient Tobacco Use Status: Former Tobacco user Years Smoked: 5 yrs e-Cigarette/Vaping Use: Never Used Substance Use Type: Marijuana service: No Current occupational status: disabled Cognitive needs: No Hearing needs: No Vision needs: No Questionnaire PHQ-9 Over the last 2 weeks, how often have you been bothered by any of the following problems? 1. Little interest or pleasure in doing things: not at all 2. Feeling down, depressed, or hopeless: not at all 3. Trouble falling or staying asleep, or sleeping too much: not at all 4. Feeling tired or having little energy: not at all 5. Poor appetite or overeating: not at all 6. Feeling bad about yourself - or that you are a failure or have let yourself or your family down: not at all 7. Trouble concentrating on things, such as reading the newspaper or watching television: not at all 8. Moving or speaking so slowly that other people could have noticed. Or the opposite - being so fidgety or restless that you have been moving around a lot more than usual: not at all 9. Thoughts that you would be better off or of hurting yourself in some way: not at all Total score: 0 Depression Screening Interpretation: Negative Depression Screening Done: Yes 23781 - PHQ-9 Billing: Yes Source: Developed by Drs. Rehan Shi, Lynda Booth, Kit Brush and colleagues, with an educational miesha from [employer]. Thrive Questionnaire Date Thrive assessed: 02/11/24 I am a: Patient What is your living situation today?: I have a steady place to live Within the past 12 months, did the food you bought not last and you didn't have the money to get more?: Never true Within the past 12 months, did you worry whether your food would run out before you got money to buy more?: Never true Do you have trouble paying for medicines?: No Do you have trouble getting transportation to medical appointments?: No Do you have trouble paying your heating and electricity bill?: No Do you have trouble taking care of your child, family member or friend?: No Do you have trouble with day-to-day activities such as bathing, preparing meals, shopping, managing finances, etc.?: Yes Are you currently unemployed and looking for a job?: No Are you interested in more education?: No Please select the resources that you would like help with: None Currently or been in a relationship where the following occur: No concerns reported THRIVE Score: 0 AUDIT C Alcohol Use Questionnaire (AUDIT-C) 1. How often do you have a drink containing alcohol?: Monthly or less 2. How many drinks containing alcohol do you have on a typical day when you are drinking?: 1 or 2 3. How often do you have six or more drinks on one occasion?: Never Total Score: 1 LESLIE-7 AMB Questionnaire LESLIE-7 Date LESLIE - 7 assessed: 02/11/24 Feeling nervous, anxious, or on edge: 1 = Several days Not being able to stop or control worryin = Several days Worrying too much about different things: 1 = Several days Trouble relaxin = Several days Being so restless that it is hard to sit still: 1 = Several days Becoming easily annoyed or irritable: 1 = Several days Feeling afraid as if something awful might happen: 0 = Not at all Total LESLIE-7 score (0-4 normal; 5-9 mild; 10-14 moderate; 15-21 severe): 6 Source: Developed by Drs. Rehan Shi, Lynda Booth, Kit Brush and colleagues, with an educational miesha from [employer]. Review of Systems Const Denies body aches, Denies fatigue, Denies fever(s), Denies headache(s) and Denies weight loss Eyes Details: Sees Dr. Gandara, diagnosed with dry eye ENT Denies dizziness, Denies headache(s), Denies nasal congestion, Denies nasal discharge and Denies sore throat Card Denies chest pain, Denies lightheadedness, Denies palpitations and Denies dyspnea Resp Denies chest congestion, Denies cough, Denies dyspnea and Denies wheezing GI Denies abdominal pain, Denies change in bowel habits and Denies heartburn Denies dysuria, Denies urinary frequency and Denies urinary urgency Musc Denies back pain, Denies myalgias, Denies arthralgias, Denies joint swelling and Denies limited range of motion Skin/Breast Denies lesions and Denies rash Neuro Denies dizziness and Denies headache(s) Psych Reports no additional complaints Endo Denies fatigue, Denies polydipsia, Denies polyuria and Denies palpitations Pelon/Lymph Denies easy bruising Aller/Immun Denies seasonal rhinorrhea and Denies wheezing Physical exam (Primary Care) Vital Signs: Last Vital Signs Pulse 66 02/11/24 12:33 BP 124/74 02/11/24 12:33 Pulse Ox 96 02/11/24 12:33 Oxygen Delivery Method Room Air 02/11/24 12:33 BMI result Body Mass Index 32.2 Tobacco/Smoking Status: Tobacco use Status Tobacco use date assessed 02/11/24 02/11/24 12:42 Patient Tobacco Use Status Former Tobacco user 02/11/24 12:34 e-Cigarette/Vaping Use Never Used 02/11/24 12:34 PHQ-9: PHQ-9 Score PHQ-9: Total score 0 02/11/24 13:14 Depression Screening Interpretation: Negative Thrive Assessment: Date of Thrive Assessment Date Thrive assessed 02/11/24 02/11/24 12:42 Currently or been in a relationship where the following occur: No concerns reported Const General: no acute distress and alert Nutritional Appearance: obese Orientation/consciousness: patient oriented x3 HENMT Head: Yes normocephalic Ears: external ears normal, TM's normal bilaterally and EAC's normal General nose exam: Normal external nose present and No nasal discharge present Face and sinus: Yes face symmetric Mouth: Normal oral and palatal mucosa present, tongue normal, oropharynx normal and moist mucous membranes Eyes Conjunctivae: conjunctivae normal Sclerae: sclerae normal Pupils: Equal, round and reactive pupils present EOM: EOMs intact bilaterally Neck Neck: Yes full ROM and Yes no lymphadenopathy Thyroid: Thyroid normal Carotids: normal carotid upstroke Lymphatic: no lymphadenopathy noted Resp Effort & Inspection: normal respiratory effort and able to speak in complete sentences Auscultation: clear to auscultation bilaterally Cardio Jugular venous distension: no JVD Rate: regular rate Rhythm: regular rhythm Heart sounds: S1 normal heart sound present and S2 normal heart sound present GI Inspection: Yes normal to inspection and Yes other (presence of diastasis recti) Palpation (GI): Soft to palpation Auscultation: normal bowel sounds General: Yes no CVA tenderness Male General Exam: Yes normal external exam Back/Spine/Pelvis Back: no CVA tenderness and No back tenderness Thoracic/Lumbar Spine: thoraco-lumbar ROM normal and straight leg raise negative bilaterally Skin General skin exam: no rashes or lesions noted Neuro General: patient oriented x3, gait normal, tone normal, moves all extremities, Normal light touch and pain sensation, no focal motor deficits and CN's II-XI intact bilaterally Cranial nerves: Yes Equal, round and reactive pupils present Cognition (Neuro): normal cognition Gait exam (Neuro): Normal gait present Motor exam (neuro): 5/5 motor strength present throughout Extrem General: Yes normal to inspection, Yes full ROM, Yes no pedal edema and Yes normal gait Psych Appearance: grossly normal and well kempt Mental Status: mental status grossly normal Affect: normal affect Office Procedures Flu Questionnaire Does the patient have a severe egg allergy?: No Does the patient have severe life threatening allergies?: No Does the patient have a fever or illness today?: No Has the patient ever had Guillain-Cody Syndrome?: No Has the patient ever had any past reaction to a flu shot?: No Results AMB Hemoglobin A1c AMB Hemoglobin A1c 6.2 % Last Edit by Jamilah Traylor CMA on 02/11/24 13:01 Immunizations Fluarix Triv [id number] (PF) 45 mcg (15 mcg x 3)/0.5 mL IM syringe Performing Provider: Christy Rivera MD [place] [facility] [place] [place] [facility] Administered by: Jamilah Traylor CMA on 02/11/24 13:15 Dose Route Admin Location Dispensed Lot Number Expiration Date [facility] Operations Trainer 0.5 mL IM Right Deltoid 0.5 mL [id number] 10/11/24 [id number] [employer] VIS Given Date VIS Provided VIS Publication Date 02/11/24 Single Vaccine 20 Eligibility Eligibility Date Funding Source Not [facility] Eligible 02/11/24 Private Results Reviewed Results Reviewed: Laboratory Last Values Hgb A1c (Clinic) 6.2 % (4.0-6.0) H 02/11/24 12:43 Coding Level of Care Code Est Pt Prev Care 40-64y(07770) Diagnoses Annual visit for general adult medical examination with abnormal findings Z00. Mixed dyslipidemia E78.2 Type 2 diabetes mellitus without complication, with no history of insulin use E11.9 Essential hypertension I10 Pernicious anemia D51.0 Generalized anxiety disorder F41.1 RADHA on CPAP G47.33; Z99.89 Obesity (BMI 30-39.9) E66.9 Erectile dysfunction, unspecified erectile dysfunction type N52.9 Erectile dysfunction type: unspecified Low serum testosterone level in male R79.89 Assessment & Plan Assessment & Plan (1) Annual visit for general adult medical examination with abnormal findings: Code(s): Z00. - Encounter for general adult medical examination with abnormal findings Plan: Will check appropriate labs. Recommended dental visit every 6 months and regular eye exams, yearly sees Dr. Garibay. Take adequate calcium in diet and vitamin-D 3 at 2000 IU per cap once a day, in addition to weight-bearing exercises to help maintain good muscle tone and weight control. Instructed to do self-testicular exam check for any mass. Flu vaccine give, patient states he will be getting the COVID booster with his next year (2) Mixed dyslipidemia: Code(s): E78.2 - Mixed hyperlipidemia Category: Medical Plan: Fasting lipid panel ordered today. Currently on rosuvastatin 10 mg daily and [place] 3 fatty acid supplements (3) Type 2 diabetes mellitus without complication, with no history of insulin use: Code(s): E11.9 - Type 2 diabetes mellitus without complications Category: Medical Plan: Hemoglobin A1c today is at 6.2%, continue on metformin a 1000 mg 1 daily, will check comprehensive metabolic panel and urine for microalbuminuria screening. Sees Dr. Fraser for his routine eye exam (4) Essential hypertension: Code(s): I10 - Essential (primary) hypertension Category: Medical Plan: Blood pressure at goal of less than 130/80. Continue lisinopril 5 mg daily. Reinforced importance of following a low sodium diet, getting regular exercise, and lowering stress levels. (5) Pernicious anemia: Code(s): D51.0 - Vitamin B12 deficiency anemia due to intrinsic factor deficiency Category: Medical Plan: Will check vitamin B12 and CBC (6) Generalized anxiety disorder: Code(s): F41.1 - Generalized anxiety disorder Category: Medical Plan: Stable and controlled on citalopram 20 mg daily (7) RADHA on CPAP: Code(s): G47.33 - Obstructive sleep apnea (adult) (pediatric); Z99.89 - Dependence on other enabling machines and devices Category: Medical Plan: Compliant with CPAP (8) Obesity (BMI 30-39.9): Code(s): E66.9 - Obesity, unspecified Category: Medical Plan: Reinforced importance of following a healthy diet, and continue with regular exercise (9) Erectile dysfunction: Code(s): N52.9 - Male erectile dysfunction, unspecified Category: Medical Qualifiers: Erectile dysfunction type: unspecified Qualified Code(s): N52.9 - Male erectile dysfunction, unspecified Plan: Will check testosterone level (10) Low serum testosterone level in male: Code(s): R79.89 - Other specified abnormal findings of blood chemistry Category: Medical Plan: Ordered serum testosterone level Orders: Orders Lipid Panel 02/11/24 D51.0 - Vitamin B12 deficiency anemia due to intrinsic factor deficiency, E11.9 - Type 2 diabetes mellitus without complications, E66.9 - Obesity, unspecified, E78.2 - Mixed hyperlipidemia, F41.1 - Generalized anxiety disorder, G47.33 - Obstructive sleep apnea (adult) (pediatric), I10 - Essential (primary) hypertension, N52.9 - Male erectile dysfunction, unspecified, R79.89 - Other specified abnormal findings of blood chemistry, Z99.89 - Dependence on other enabling machines and devices Microalbumin, Random (w Creat) 02/11/24 D51.0 - Vitamin B12 deficiency anemia due to intrinsic factor deficiency, E11.9 - Type 2 diabetes mellitus without complications, E66.9 - Obesity, unspecified, E78.2 - Mixed hyperlipidemia, F41.1 - Generalized anxiety disorder, G47.33 - Obstructive sleep apnea (adult) (pediatric), I10 - Essential (primary) hypertension, N52.9 - Male erectile dysfunction, unspecified, R79.89 - Other specified abnormal findings of blood chemistry, Z99.89 - Dependence on other enabling machines and devices PSA,Total (Free>4and<10) 02/11/24 D51.0 - Vitamin B12 deficiency anemia due to intrinsic factor deficiency, E11.9 - Type 2 diabetes mellitus without complications, E66.9 - Obesity, unspecified, E78.2 - Mixed hyperlipidemia, F41.1 - Generalized anxiety disorder, G47.33 - Obstructive sleep apnea (adult) (pediatric), I10 - Essential (primary) hypertension, N52.9 - Male erectile dysfunction, unspecified, R79.89 - Other specified abnormal findings of blood chemistry, Z99.89 - Dependence on other enabling machines and devices Influenza [id number] Immunization 02/11/24 Z23 - Encounter for immunization Complete Blood Count Auto Diff Today D51.0 - Vitamin B12 deficiency anemia due to intrinsic factor deficiency AMB Hemoglobin A1c 02/11/24 E11.9 - Type 2 diabetes mellitus without complications Comprehensive [place]. Panel Fast 02/11/24 D51.0 - Vitamin B12 deficiency anemia due to intrinsic factor deficiency, E11.9 - Type 2 diabetes mellitus without complications, E66.9 - Obesity, unspecified, E78.2 - Mixed hyperlipidemia, F41.1 - Generalized anxiety disorder, G47.33 - Obstructive sleep apnea (adult) (pediatric), I10 - Essential (primary) hypertension, N52.9 - Male erectile dysfunction, unspecified, R79.89 - Other specified abnormal findings of blood chemistry, Z99.89 - Dependence on other enabling machines and devices Vitamin B12 and Folate 02/11/24 D51.0 - Vitamin B12 deficiency anemia due to intrinsic factor deficiency, E11.9 - Type 2 diabetes mellitus without complications, E66.9 - Obesity, unspecified, E78.2 - Mixed hyperlipidemia, F41.1 - Generalized anxiety disorder, G47.33 - Obstructive sleep apnea (adult) (pediatric), I10 - Essential (primary) hypertension, N52.9 - Male erectile dysfunction, unspecified, R79.89 - Other specified abnormal findings of blood chemistry, Z99.89 - Dependence on other enabling machines and devices Vitamin D 25-OH Total 02/11/24 D51.0 - Vitamin B12 deficiency anemia due to intrinsic factor deficiency, E11.9 - Type 2 diabetes mellitus without complications, E66.9 - Obesity, unspecified, E78.2 - Mixed hyperlipidemia, F41.1 - Generalized anxiety disorder, G47.33 - Obstructive sleep apnea (adult) (pediatric), I10 - Essential (primary) hypertension, N52.9 - Male erectile dysfunction, unspecified, R79.89 - Other specified abnormal findings of blood chemistry, Z99.89 - Dependence on other enabling machines and devices Testosterone, Free/Total 02/11/24 D51.0 - Vitamin B12 deficiency anemia due to intrinsic factor deficiency, E11.9 - Type 2 diabetes mellitus without complications, E66.9 - Obesity, unspecified, E78.2 - Mixed hyperlipidemia, F41.1 - Generalized anxiety disorder, G47.33 - Obstructive sleep apnea (adult) (pediatric), I10 - Essential (primary) hypertension, N52.9 - Male erectile dysfunction, unspecified, R79.89 - Other specified abnormal findings of blood chemistry, Z99.89 - Dependence on other enabling machines and devices
== END 2024-02-11 13:44 | disposition home or self-care (01) ==
PROVIDERS: PCP Internal Medicine; Visit Provider Internal Medicine
DX: Z00.01 Encounter for general adult medical examination with abnormal findings (principal); E78.2 Mixed hyperlipidemia; E11.9 Type 2 diabetes mellitus without complications; I10 Essential (primary) hypertension; D51.0 Vitamin B12 deficiency anemia due to intrinsic factor deficiency; F41.1 Generalized anxiety disorder; G47.33 Obstructive sleep apnea (adult) (pediatric); Z99.89 Dependence on other enabling machines and devices; E66.9 Obesity, unspecified; N52.9 Male erectile dysfunction, unspecified; R79.89 Other specified abnormal findings of blood chemistry

== ENCOUNTER → 2024-02-11 11:53 | Outpatient (BNVA) | payer OTHER, SELFPAY | PROVIDERS: PCP Internal Medicine; Visit Provider Internal Medicine | DX: Z00.01 Encounter for general adult medical examination with abnormal findings (principal); Z23 Encounter for immunization; E78.2 Mixed hyperlipidemia; E11.9 Type 2 diabetes mellitus without complications; I10 Essential (primary) hypertension; D51.0 Vitamin B12 deficiency anemia due to intrinsic factor deficiency; F41.1 Generalized anxiety disorder; G47.33 Obstructive sleep apnea (adult) (pediatric); Z99.89 Dependence on other enabling machines and devices; E66.9 Obesity, unspecified; Z68.32 Body mass index [BMI] 32.0-32.9, adult; N52.9 Male erectile dysfunction, unspecified; R79.89 Other specified abnormal findings of blood chemistry; Z71.3 Dietary counseling and surveillance | CPT/HCPCS: 83036; 90471; 90656; 96127; 99396 ==

== ENCOUNTER 2024-06-15 08:12 | Outpatient (AMB) | payer OTHER, SELFPAY ==
[2024-06-15 08:18] VITALS: BP 134/90; PULSE 67; TEMP 36.8; O2SAT 98
--- NOTE | 2024-06-15 08:18 | AM.OFFWIN_ITS ---
Intake Vital Signs 06/15/24 08:18 Weight 207 lb BP 134/90 H Blood Pressure Location Lt brachial Position Sitting Pulse 67 Pulse Source Pulse Oximeter Temp 98.2 F Temp Source Oral Pulse Oximetry (%) 98 Intake Visit Reasons: EP Chest pain, front and back, little sob, fatigue Intake Note: Patient here for slight cough, chest and back tightness that has been present for about 1 week. He states he was moving things around and it could be muscle related. Patient Tobacco Use Status: Former Tobacco user Allergies amoxicillin Adverse Reaction (Mild, Verified 06/15/24 08:19) Stomach Upset Do you need a note to return to daycare/school/sports/work: No HPI HPI Comments History of Present Illness Details This is a 63-year-old male with a past medical history of onf-bqqwfjl-lajgmqoid diabetes, hypertension, hyperlipidemia and obstructive sleep apnea presenting for evaluation of chest pressure and mid back pain that he has had for the past 1 week. Patient states he has also been significantly fatigued, describing unrelenting fatigue after being awake for approximately 1 hour. Patient states approximately 1 week ago he was moving a 55 gal container that was full of frozen water. Patient has not taken any vpaf-qwv-blnxece medications for treatment of his symptoms. Patient states that he has chest pressure at this time. EKG reveals normal sinus rhythm at a rate of 60 beats per minute. [facility] Medical History Low serum testosterone level in male Erectile dysfunction Obesity (BMI 30-39.9) RADHA on CPAP Generalized anxiety disorder Pernicious anemia Essential hypertension Type 2 diabetes mellitus without complication, with no history of insulin use Mixed dyslipidemia Surgical History Hx of colonoscopy H/O shoulder surgery History of cataract surgery History of carpal tunnel surgery Status post cervical discectomy Family History Father Diabetes mellitus Atherosclerotic coronary vascular disease Prostate cancer Social History Housing: House Alcohol intake: current Alcohol intake frequency: a few times a month Patient Tobacco Use Status: Former Tobacco user Years Smoked: 5 yrs e-Cigarette/Vaping Use: Never Used Substance Use Type: Marijuana service: No Current occupational status: disabled Cognitive needs: No Hearing needs: No Vision needs: No Review of Systems Const All systems reviewed & are unremarkable except as noted in HPI and below Denies body aches, Denies chills, Reports fatigue, Denies fever(s), Denies headache(s), Reports lethargy and Reports malaise Eyes Reports no additional complaints ENT Reports no additional complaints and Denies headache(s) Card Reports chest pain, Denies rapid heart rate, Reports dyspnea and Reports dyspnea on exertion Resp Reports no additional complaints, Reports dyspnea and Reports dyspnea on ex ertion GI Reports no additional complaints Reports no additional complaints Musc Reports back pain Skin/Breast Reports system reviewed and no additional complaints, except as documented Neuro Reports no additional complaints and Denies headache(s) Psych Reports no additional complaints Endo Reports no additional complaints and Reports fatigue Pelon/Lymph Reports no additional complaints Physical Exam Const General: cooperative, comfortable, well developed, alert and awake; No acute distress Nutritional Appearance: overweight Orientation/consciousness: patient oriented x3 Limitations: no limitations Chest Chest palpation & inspection: normal inspection of the chest, normal palpation of entire chest wall, no localized rib tenderness and no tenderness Resp Effort & Inspection: normal respiratory effort, able to speak in complete sentences, no audible wheezes, no cough, respiratory effort not decreased and not tachypneic Auscultation: clear to auscultation bilaterally Cardio Rate: regular rate Rhythm: regular rhythm Back/Spine/Pelvis Other: There is no pain elicited upon palpation of the thoracic or lumbar paraspinous musculature or other musculature of the back. Skin General skin exam: no rashes or lesions noted Neuro General: patient oriented x3 Psych Appearance: grossly normal Mental Status: mental status grossly normal Insight: Good insight present (Psych) Judgement: Good judgement present (Psych) Results Reviewed Results Reviewed: EKG NSR rate 60bpm Assessment & Plan Assessment & Plan (1) Chest pain: Comment: patient's EKGs nonischemic and his chest pain and back pain is not reproducible. Given this patient's multiple risk factors, patient will be transferred to the emergency department for further evaluation and care. Code(s): R07.9 - Chest pain, unspecified Qualifiers: Chest pain type: unspecified Qualified Code(s): R07.9 - Chest pain, unspecified Plan: Patient will take his private vehicle to [facility] ED for further evaluation. Expect is called to the charge nurse, Ketty at 8:40 a.m. (2) Fatigue: Comment: See above. Code(s): R53.83 - Other fatigue Qualifiers: Fatigue type: other Qualified Code(s): R53.83 - Other fatigue Plan: ED [facility] for further evaluation. Orders: Orders AMB EKG-In Office Today R07.9 - Chest pain, unspecified Coding Level of Care Code Est Pt Level 4 (82211) Diagnoses Chest pain, unspecified type R07.9 Chest pain type: unspecified Other fatigue R53.83 Fatigue type: other Time Spent (min) 20
== END 2024-06-15 09:37 | disposition home or self-care (01) ==
PROVIDERS: PCP Internal Medicine; Visit Provider Physician Assistant
DX: R07.9 Chest pain, unspecified (principal); R53.83 Other fatigue

== ENCOUNTER 2024-06-15 09:28 | Emergency (ER) | payer OTHER, SELFPAY ==
--- NOTE | ~2024-06-15 | CT_ITS ---
CLINICAL HISTORY: chest and back pain CTA angiography chest using bolus contrast injection. 3-D postprocessing Comparison: None Findings: Normal thoracic aorta and branch vessels. No aneurysm and no dissection. The aortic root diameter is 3.6 cm. Sino-tubular junction diameter is 2.7 cm. Mid ascending aorta diameter is 3 cm. Aortic arch diameter is 2.3 cm. The proximal descending aorta diameter is 2.5 cm. The mid descending thoracic aorta diameter is 2.3 cm. The distal thoracic aorta diameter is 2.1 cm. The diaphragmatic aorta diameter is 2.1 cm. Heart size is normal . RV/LV ratio normal. No pericardial effusion. Bolus contrast is sufficient to exclude pulmonary embolus. The trachea and esophagus are unremarkable. No adenopathy. The lungs are clear. No pleural effusion. No acute fractures. There is moderate degenerative narrowing of the L4-5 disc space. Contrast Impression: Normal CTA angiography of the aorta. No aneurysm and no dissection Negative for pulmonary embolus This document has been electronically signed by: Gabe Marcos MD on 06/15/2024 17:43:27
--- NOTE | ~2024-06-15 | CT_ITS ---
CLINICAL HISTORY: chest and back pain CTA abdomen with contrast and CTA pelvis with contrast, using bolus contrast injection. 3-D postprocessing Comparison: None The liver density is homogeneous. There is diffuse fatty liver infiltration The gallbladder measures 3.1 x 9.2 cm containing gallstones. Normal in size spleen No pancreatic ductal dilatation No hydronephrosis. No urinary tract calculi or obstruction. Normal bowel caliber No signs of appendicitis. No free fluid/free air The aorta diameter is normal. No dissection. The celiac aorta diameter is 2.2 cm. The hepatic and splenic arteries and gastroduodenal artery are normal. Right gastric artery is normal The superior mesenteric aorta diameter is 1.9 cm. The renal artery aorta diameter is 1.9 cm. The infrarenal abdominal aorta diameter is 1.8 cm. The mid abdominal aorta diameter is 1.6 cm. The distal abdominal aorta diameter is 1.6 cm. Right common iliac artery diameter is 1.0 cm. The left common iliac artery diameter is 1.0 cm. The vena cava diameter is normal. No adenopathy CTA PELVIS with contrast: No fluid in the pelvis. Bladder outline is smooth. There is symmetric enlargement of the prostate gland. No suspicious skeletal lesions No hernias or soft tissue defects Impression: Normal aorta and branch vessels. Diffuse fatty liver infiltration. Cholelithiasis. This document has been electronically signed by: Gabe Marcos MD on 06/15/2024 17:45:39
--- NOTE | ~2024-06-15 | XR_ITS ---
EXAMINATION: XR CHEST CLINICAL INFORMATION: pain COMPARISON: July 21, 2018 TECHNIQUE: 2 views of the chest were obtained. FINDINGS: No consolidation, pleural effusion or pneumothorax. Cardiomediastinal silhouette size is normal. Calcified plaque aortic arch. Multilevel thoracic spondylosis. Metallic plate lower cervical spine. XR/XR chest 2V IMPRESSION: No acute airspace disease. Spondylosis, thoracic spine. Electronically signed by: Trevon León MD 06/15/2024 10:45 AM PAVEL
--- NOTE | 2024-06-15 09:31 | ECG_ITS ---
Test Reason : chest pain Blood Pressure : */* mmHG Vent. Rate : 60 BPM Atrial Rate : 60 BPM P-R Int : 186 ms QRS Dur : 94 ms QT Int : 410 ms P-R-T Axes : -13 72 37 degrees QTcB Int : 410 ms Normal sinus rhythm Possible Anterior infarct , age undetermined Abnormal ECG No previous ECGs available Referred By: Ryne Rebolledo Electronically Signed By: PAULA CARL MD
[2024-06-15 09:48] VITALS: BP 141/73; PULSE 62; RESP 16; TEMP 37.1; O2SAT 98; BMI 31.2
--- NOTE | 2024-06-15 09:55 | ED.CHESTPAIN ---
HPI - Chest Pain General Chief Complaint: Chest Pain Stated Complaint: Chest pain Time Seen by Provider: 06/15/24 15:19 Source: patient Mode of arrival: ambulatory Limitations: no limitations History of Present Illness ED Provider: Dr. Bower HPI narrative: 63 year old male PMH: [id number] diabetes, hypertension, hyperlipidemia and obstructive sleep apnea. He presented to his PCP for chest pain and sent in for further evaluation of non reproducible chest and back pain. Had XR and labs after evaluation in triage. Patient was moving a large drum this past week what she states was approximately 500 lb in the symptoms have been going on since then Related Data Home Medications ?Medication ?Instructions ?Recorded ?Confirmed blood sugar diagnostic #10 ea 04/24/20 02/11/24 Previous Rx's ?Medication ?Instructions ?Recorded omega-3 acid ethyl esters 1 gram 2 cap PO BID 90 days #360 caps 01/09/23 capsule cyanocobalamin (vitamin B-12) 1,000 mcg PO DAILY #90 tabs 05/06/23 1,000 mcg tablet,extended release rosuvastatin 10 mg tablet 10 mg PO DAILY #90 tabs 10/22/23 metformin 1,000 mg tablet 1,000 mg PO DAILY #90 tabs 12/26/23 citalopram 20 mg tablet 20 mg PO DAILY #90 tabs 03/31/24 lisinopril 5 mg tablet 5 mg PO DAILY #90 tabs 03/31/24 cholecalciferol (vitamin D3) 50 50 mcg PO DAILY #90 caps 05/25/24 mcg (2,000 unit) capsule Allergies Allergy/AdvReac Type Severity Reaction Status Date / Time amoxicillin AdvReac Mild Stomach Verified 06/15/24 09:48 Upset Review of Systems Review of Systems: Review of systems: General: Patient denies any fever chills recent illness or falls Musculoskeletal: back pain or body aches or other injuries HEENT: denies headache, runny nose, ear pain Respiratory: denies shortness of breath, cough Cardiovascular: chest pain no palpitations : denies dysuria, frequency Abdomen: no nausea vomiting denies abdominal pain Extremities: no swelling, no pain Skin: no diaphoresis Yes all other systems are reviewed and are negative PMF Past Medical History Medical History Low serum testosterone level in male Erectile dysfunction Obesity (BMI 30-39.9) RADHA on CPAP Generalized anxiety disorder Pernicious anemia Essential hypertension Type 2 diabetes mellitus without complication, with no history of insulin use Mixed dyslipidemia Surgical History Hx of colonoscopy H/O shoulder surgery History of cataract surgery History of carpal tunnel surgery Status post cervical discectomy Family History Family History Father Diabetes mellitus Atherosclerotic coronary vascular disease Prostate cancer Social History Social History Housing: House Alcohol intake: current Alcohol intake frequency: a few times a month Patient Tobacco Use Status: Former Tobacco user Years Smoked: 5 yrs Smoked in Last 30 Days: No e-Cigarette/Vaping Use: Never Used Use of substances other than those prescribed or required for medical reasons: No Substance Use Type: Marijuana Advance Directives: No Advance Directives Information Provided: No Do you have a plan to hurt others: No Plan service: No Current occupational status: disabled Cognitive needs: No Hearing needs: No Vision needs: No Physical Exam Vital Signs: Vital Signs: Last Vital Signs Temp 98.1 F 06/15/24 15:20 Pulse 63 06/15/24 16:26 Resp 16 06/15/24 16:26 BP 148/70 H 06/15/24 16:26 Pulse Ox 98 06/15/24 16:26 O2 Del Method Room Air 06/15/24 16:26 BMI result Body Mass Index 31.2 General: Well-appearing well-nourished in no signs of distress HEENT: Normocephalic atraumatic Neck: No signs of JVD, no masses no tenderness or lymphadenopathy Cardiovascular: Regular rate and rhythm Respiratory: Clear to auscultation bilaterally Abdomen: Soft nontender no masses Extremities: Normal pedal pulses no signs of edema Skin: Dry warm no rashes Back: No tenderness full ROM Course Course Course Narrative: 63 yo male with PMH of HTN, HLD, DM not a smoker he notes his father had heart issues in his 40s. He has had central lower chest pain wrapping around his chest with dyspnea. He has pain a 1/2 hour after waking up. He does feel tired. No fevers or cough. He has not traveled or had a procedure at this time will need basic labs, EKG, CXR. this is a RAPID medical screening exam the rest of the history and physical exam is to be done by the main provider. Reevaluation(s) Reevaluation #1: 1192 CTA was read as negative there is no signs of dissection 2nd troponin is also negative I will discharge the patient home Medications Administered Discontinued Medications Generic Name Dose Route Start Last Admin Trade Name Frejoseph PRN Reason Stop Dose Admin Sodium Chloride 1,000 mls @ 999 mls/hr 06/15/24 16:00 06/15/24 17:19 Ns IV 06/15/24 17:00 Infused .Q1H1M VICTOR MANUEL Infusion Iohexol 100 ml 06/15/24 16:19 06/15/24 16:24 Iohexol 350 Mg/Ml 100 Ml Infus..Btl IV 06/15/24 16:20 100 ml ONCE ONE Administration Medical Decision Making Medical Decision Making [facility] Narrative: I will give the patient for CTA initial x-ray and labs are all unremarkable. Differential Diagnosis Differential Diagnoses: The differential diagnosis associated with the presentation includes ACS aortic dissection less likely chest wall pain musculoskeletal pain due to lifting the 500s syndrome Lab Data [facility] Lab Attestation statement: I reviewed the patient's lab results. 06/15/24 10:01 06/15/24 10:01 Labs: Lab Results 06/15/24 06/15/24 Range/Units 10:01 15:24 WBC 7.3 (4.8-10.8) X10*3/uL RBC 4.74 (4.60-5.80) X10*6/uL Hgb 14.6 (14.0-18.0) g/dl Hct 41.9 L (42.0-52.0) % MCV 88.4 (80.0-98.0) fL MCH 30.8 (27.0-33.0) pg MCHC 34.8 (31.0-36.0) g/dl RDW 12.5 (11.0-16.0) % Plt Count 228 (160-400) X10*3/uL MPV 9.8 (9.4-12.4) fL Immature Gran % (Auto) 0.3 (0.0-0.4) % Neut % (Auto) 55.7 (45-73) % Lymph % (Auto) 35.4 (20-40) % [place] % (Auto) 6.5 (2-11) % Eos % (Auto) 1.8 (0-4) % Baso % (Auto) 0.3 (0-2) % Lymph # (Auto) 2.6 (1.2-4.9) X10*3/uL [place] # (Auto) 0.5 (0.1-1.2) X10*3/uL Eos # (Auto) 0.1 (0.0-0.4) X10*3/uL Baso # (Auto) 0.0 (0.0-0.2) X10*3/uL Abs Immat Gran (auto) 0.02 (0.00-0.03) X10*3/uL Absolute Neuts (auto) 4.1 (2.0-8.3) x10*3/uL Absolute Nucleated RBC 0.000 (0.0-0.012) X10*3/uL Nucleated RBC % (auto) 0.0 (0.0-0.2) /100WBC Sodium 140 (135-145) mmol/L Potassium 4.6 (3.3-5.1) mmol/L Chloride 105 (96-108) mmol/L Carbon Dioxide 26 (22-29) mmol/L Anion Gap 14 (12-20) BUN 18 H (9-16) mg/dL Creatinine 0.90 (0.5-1.4) mg/dL Estim Creat Clear Calc 91.8 Estimated GFR > 60 Random Glucose 106 (60-115) mg/dL Calcium 9.7 (8.4-10.2) mg/dL Total Bilirubin 1.1 H (0.0-1.0) mg/dL AST 23 (5-37) U/L ALT 22 (0-40) U/L Alkaline Phosphatase 56 (39-117) U/L Troponin I High Sens < 2.7 < 2.7 (<3.5-35.0) ng/L Total Protein 8.2 H (6.5-8.0) g/dL Albumin 4.7 (3.5-5.0) g/dL Independent Interpretation I performed an independent interpretation of an: EKG, Plain X-Ray and CT Scan Radiology Impression Discussion of test interpretation with radiology: I have reviewed the radiologist's reading. External Record Review External record reviewed: Inpatient record, Office record and Outpatient record Discharge Plan Discharge Clinical Impression: Back pain Chest pain Qualifiers: Chest pain type: unspecified Qualified Code(s): R07.9 - Chest pain, unspecified Patient Disposition: Home, Self-Care Instructions: Chest Pain (DC), Back Pain (ED) Additional Instructions: You were seen today in the emergency department for back and chest pain this is likely related to lifting. You were seen by Dr. Matthew Bower You did go testing for your heart including troponins which were all negative. We explained to you the HEART score which we use to see if your chest pain is concerning. You also had a CT scan of the looked at the aorta which was all normal. Please call to follow up with your doctor. Prescriptions: No Action omega-3 acid ethyl esters 1 gram capsule 2 cap PO BID 90 Days Qty: 360 1RF cyanocobalamin (vitamin B-12) 1,000 mcg tablet extended release 1,000 mcg PO DAILY Qty: 90 1RF rosuvastatin 10 mg tablet 10 mg PO DAILY Qty: 90 1RF metformin 1,000 mg tablet 1,000 mg PO DAILY Qty: 90 0RF citalopram 20 mg tablet 20 mg PO DAILY Qty: 90 2RF lisinopril 5 mg tablet 5 mg PO DAILY Qty: 90 2RF cholecalciferol (vitamin D3) 50 mcg (2,000 unit) capsule 50 mcg PO DAILY Qty: 90 1RF (DME) FreeStyle Lite Strips Strip See Rx Instructions Not Applicable BID Qty: 10 Rx Instructions: As directed Print Language: Kyrgyz
[2024-06-15 10:06] LABS: MANUAL DIFF FLAG NO
[2024-06-15 10:07] LABS: Basophils Percent Auto 0.3 % (0-2); Eosinophils Absolute Auto 0.1 X10*3/uL (0.0-0.4); Eosinophils Percent Auto 1.8 % (0-4); Hematocrit 41.9 % (42.0-52.0); Hemoglobin 14.6 g/dl (14.0-18.0); Imm Gran Abs Auto 0.02 X10*3/uL (0.00-0.03); Imm Gran Pct Auto 0.3 % (0.0-0.4); Lymphocytes Absolute Auto 2.6 X10*3/uL (1.2-4.9); Lymphocytes Percent Auto 35.4 % (20-40); Mean Corpuscular HGB Conc 34.8 g/dl (31.0-36.0); Mean Corpuscular Hemoglobin 30.8 pg (27.0-33.0); Mean Corpuscular Volume 88.4 fL (80.0-98.0); Mean Platelet Volume 9.8 fL (9.4-12.4); Monocytes Absolute Auto 0.5 X10*3/uL (0.1-1.2); Monocytes Percent Auto 6.5 % (2-11); Neutrophils Absolute Auto 4.1 x10*3/uL (2.0-8.3); Neutrophils Percent Auto 55.7 % (45-73); Platelet Count 228 X10*3/uL (160-400); Red Blood Count 4.74 X10*6/uL (4.60-5.80); Red Cell Distribution Width 12.5 % (11.0-16.0); White Blood Count 7.3 X10*3/uL (4.8-10.8)
[2024-06-15 10:21] LABS: Alanine Aminotransferase 22 U/L (0-40); Albumin Level 4.7 g/dL (3.5-5.0); Alkaline Phosphatase 56 U/L (39-117); Anion Gap 14 (12-20); Aspartate Amino Transferase 23 U/L (5-37); Bilirubin Total 1.1 mg/dL (0.0-1.0); Blood Urea Nitrogen 18 mg/dL (9-16); Calcium 9.7 mg/dL (8.4-10.2); Carbon Dioxide 26 mmol/L (22-29); Chloride 105 mmol/L (96-108); Creatinine Clr Calc Pharmacy 91.8; Estimated Glomerular Filt Rate > 60; Glucose Random 106 mg/dL (60-115); Potassium 4.6 mmol/L (3.3-5.1); Sodium 140 mmol/L (135-145); Total Protein 8.2 g/dL (6.5-8.0)
[2024-06-15 10:29] LABS: Troponin-I High Sensitivity < 2.7 ng/L (<3.5-35.0)
[2024-06-15 15:20] VITALS: BP 165/79; PULSE 62; RESP 13; TEMP 36.7; O2SAT 99
[2024-06-15 15:54] LABS: Troponin-I High Sensitivity < 2.7 ng/L (<3.5-35.0)
[2024-06-15] MEDS: iohexoL 350 MG/ML 100 ML INFUS..BTL IV (16:24)
[2024-06-15] MEDS: 0.9 % Sodium Chloride 1,000 ML 999 ML IV (16:25)
[2024-06-15 16:26] VITALS: BP 148/70; PULSE 63; RESP 16; O2SAT 98
[2024-06-15 18:15] VITALS: BP 148/80; PULSE 60; RESP 13; O2SAT 95
[2024-06-15 18:17] VITALS: BP 148/80; PULSE 60; RESP 13; TEMP -17.7; TEMP 0; O2SAT 95
== END 2024-06-15 18:18 | disposition home or self-care (01) ==
PROVIDERS: Emergency Medicine; Emergency Provider Student in an Organized Health Care Education/Training Program; PCP Internal Medicine
DX: R07.89 Other chest pain (principal); M54.50 Low back pain, unspecified; R06.00 Dyspnea, unspecified; I10 Essential (primary) hypertension; E11.9 Type 2 diabetes mellitus without complications; Z87.891 Personal history of nicotine dependence; Z79.899 Other long term (current) drug therapy; Z79.84 Long term (current) use of oral hypoglycemic drugs
CPT/HCPCS: 36415; 71046; 71275; 74174; 80053; 84484; 85025; 93005; 96360; 99212; 99284; 99285; Q9967

== ENCOUNTER → 2024-06-15 09:31 | Outpatient (BNV) | payer OTHER, SELFPAY | PROVIDERS: Emergency Provider Student in an Organized Health Care Education/Training Program; PCP Internal Medicine; Visit Provider Internal Medicine Cardiovascular Disease | DX: R94.31 Abnormal electrocardiogram [ECG] [EKG] (principal); R07.9 Chest pain, unspecified | CPT/HCPCS: 93010 ==

== ENCOUNTER → 2024-06-15 09:58 | Outpatient (BNV) | payer OTHER, SELFPAY | PROVIDERS: PCP Internal Medicine; Visit Provider Radiology Diagnostic Radiology | DX: R07.9 Chest pain, unspecified (principal); M54.9 Dorsalgia, unspecified | CPT/HCPCS: 71046; 71275; 74174 ==

== ENCOUNTER 2024-06-22 10:32 | Outpatient (REF) | payer OTHER, SELFPAY ==
[2024-06-22 13:57] LABS: Estimated Average Glucose 134 mg/dL; Hemoglobin A1c % 6.3 % (<6.0)
[2024-06-22 14:09] LABS: Cholesterol 202 mg/dL (<200); HDL Cholesterol 32 mg/dL (>40); Triglycerides 555 mg/dL (<150)
[2024-06-22 14:24] LABS: Creatinine Urine 100.62 mg/dL
[2024-06-22 14:28] LABS: Vitamin D 25-OH Total 54.3 ng/mL (>30)
[2024-06-22 14:43] LABS: PSA,Total (Free>4and<10) 1.13 ng/mL (0.00-4.00)
[2024-06-22 14:58] LABS: Folate 11.4 ng/mL (> or = 4.0); Vitamin B12 268 pg/mL (200-900)
[2024-07-02 16:39] LABS: Testosterone, Free 38.8 pg/mL (35.0-155.0); Testosterone, Total 115 ng/dL (250-1100)
== END 2024-06-22 10:33 | disposition home or self-care (01) ==
LOC: HO.HMGCLDS 10:32
PROVIDERS: PCP Internal Medicine; Visit Provider Internal Medicine
DX: D51.0 Vitamin B12 deficiency anemia due to intrinsic factor deficiency (principal); R79.89 Other specified abnormal findings of blood chemistry; E66.9 Obesity, unspecified; N52.9 Male erectile dysfunction, unspecified; E11.9 Type 2 diabetes mellitus without complications; E78.2 Mixed hyperlipidemia; Z86.39 Personal history of other endocrine, nutritional and metabolic disease; Z12.5 Encounter for screening for malignant neoplasm of prostate; S29.011D Strain of muscle and tendon of front wall of thorax, subsequent encounter
CPT/HCPCS: 36415; 80061; 82043; 82306; 82570; 82607; 82746; 83036; 84153; 84402; 84403; 99212

== ENCOUNTER 2024-06-22 10:32 | Outpatient (AMB) | payer OTHER, SELFPAY ==
--- NOTE | 2024-06-22 10:58 | A.OFFPC_ITS ---
Vital Signs 06/22/24 11:00 Height 5 ft 8 in Weight 212 lb BMI 32.2 BP 138/68 Blood Pressure Location Lt brachial Position Sitting Respiration 14 Pulse 62 Pulse Source Pulse Oximeter Temp 98.2 F Temp Source Oral Pulse Oximetry (%) 96 Oxygen Delivery Method Room Air Intake Visit Reasons: ER, muscle strain [facility] Intake Note: Pt is here today for a [facility] ER f/u muscle strain Allergies amoxicillin Adverse Reaction (Mild, Verified 06/22/24 11:33) Stomach Upset Medication List - Last Reconciled 06/22/24 by Christy Rivera MD blood sugar diagnostic As directed cholecalciferol (vitamin D3) 50 mcg PO DAILY citalopram 20 mg PO DAILY cyanocobalamin (vitamin B-12) ER 1,000 mcg PO DAILY lisinopril 5 mg PO DAILY metformin 1,000 mg PO DAILY omega-3 acid ethyl esters 2 caps PO BID 90 days rosuvastatin 10 mg PO DAILY Tobacco use date assessed: 06/22/24 Dental Screening Dental Screen Date: 06/22/24 Did you have a dental visit in the last 12 months?: Yes Did you have a dental problem in the last 6 months where you did not have access to dental care?: No Was dental information given to patient?: Patient has dentist HPI ER, muscle strain C HPI Details 63-year-old male with history of low ser um testosterone level with erectile dysfunction, obstructive sleep apnea on CPAP, generalized anxiety disorder, pernicious anemia, hypertension , type 2 diabetes mellitus, and mixed dyslipidemia, here today for follow-up after recent ER visit where he was seen due to chest pain.Patient was moving a large drum this past week, which he st ates was approximately 500 lb, and he is symptoms have been going on since then. Patient described the pain as pushing pulling/tearing on middle of chest aggravated by turning his trunk sideways or doing any lifting. He is also overdue for lipid check, been compliant with taking his [place] 3 fatty acid supplements and rosuvastatin. Trying to adhere to recommended diet. Has history of low testosterone levels in the past, patient however does not complain of any increased fatigue or joint pain, no headache or swelling or lack of energy. [facility] Medical History Low serum testosterone level in male Erectile dysfunction Obesity (BMI 30-39.9) RADHA on CPAP Generalized anxiety disorder Pernicious anemia Essential hypertension Type 2 diabetes mellitus without complication, with no history of insulin use Mixed dyslipidemia Surgical History Hx of colonoscopy H/O shoulder surgery History of cataract surgery History of carpal tunnel surgery Status post cervical discectomy Family History Father Diabetes mellitus Atherosclerotic coronary vascular disease Prostate cancer Social History Housing: House Alcohol intake: current Alcohol intake frequency: a few times a month Patient Tobacco Use Status: Former Tobacco user Years Smoked: 5 yrs e-Cigarette/Vaping Use: Never Used Substance Use Type: Marijuana service: No Current occupational status: disabled Cognitive needs: No Hearing needs: No Vision needs: No Questionnaire PHQ-9 Over the last 2 weeks, how often have you been bothered by any of the following problems? Depression Screening Interpretation: Negative Depression Screening Done: Yes Source: Developed by Drs. Rehan Shi, Lynda Booth, Kit Brush and colleagues, with an educational miesha from [employer] Thrive Questionnaire Date Thrive assessed: 06/22/24 I am a: Patient What is your living situation today?: I have a steady place to live Within the past 12 months, did the food you bought not last and you didn't have the money to get more?: Never true Within the past 12 months, did you worry whether your food would run out before you got money to buy more?: Never true Do you have trouble paying for medicines?: No Do you have trouble getting transportation to medical appointments?: No Do you have trouble paying your heating and electricity bill?: No Do you have trouble taking care of your child, family member or friend?: No Do you have trouble with day-to-day activities such as bathing, preparing meals, shopping, managing finances, etc.?: Yes Are you currently unemployed and looking for a job?: No Are you interested in more education?: No Please select the resources that you would like help with: None Currently or been in a relationship where the following occur: No concerns reported THRIVE Score: 0 AUDIT C Alcohol Use Questionnaire (AUDIT-C) 2. How many drinks containing alcohol do you have on a typical day when you are drinking?: 1 or 2 3. How often do you have six or more drinks on one occasion?: Never Total Score: 0 LESLIE-7 AMB Questionnaire LESLIE-7 Date LESLIE - 7 assessed: 02/11/24 Source: Developed by Drs. Rehan Shi, Lynda Booth, Kit Brush and colleagues, with an educational meisha from [employer] Review of Systems Const All systems reviewed & are unremarkable except as noted in HPI and below Physical exam (Primary Care) Vital Signs: Last Vital Signs Temp 98.2 F 06/22/24 11:00 Pulse 62 06/22/24 11:00 Resp 14 06/22/24 11:00 BP 138/68 06/22/24 11:00 Pulse Ox 96 06/22/24 11:00 Oxygen Delivery Method Room Air 06/22/24 11:00 BMI result Body Mass Index 32.2 Tobacco/Smoking Status: Tobacco use Status Tobacco use date assessed 06/22/24 06/22/24 11:03 Patient Tobacco Use Status Former Tobacco user 06/22/24 11:03 e-Cigarette/Vaping Use Never Used 06/22/24 11:03 Depression Screening Interpretation: Negative Thrive Assessment: Date of Thrive Assessment Date Thrive assessed 06/22/24 06/22/24 11:03 Currently or been in a relationship where the following occur: No concerns reported Const General: no acute distress and alert Nutritional Appearance: obese Orientation/consciousness: patient oriented x3 HENMT Ears: external ears normal General nose exam: Normal external nose present Mouth: Normal oral and palatal mucosa present, tongue normal, oropharynx normal and moist mucous membranes Eyes Conjunctivae: conjunctivae normal Sclerae: sclerae normal Pupils: Equal, round and reactive pupils present EOM: EOMs intact bilaterally Neck Neck: Yes full ROM and Yes no lymphadenopathy Thyroid: Thyroid normal Chest Other: No reproducible tenderness on palpation over anterior chest wall Chest palpation & inspection: normal inspection of the chest and normal palpation of entire chest wall Resp Effort & Inspection: normal respiratory effort and able to speak in complete sentences Auscultation: clear to auscultation bilaterally Cardio Jugular venous distension: no JVD Rate: regular rate Rhythm: regular rhythm Heart sounds: S1 normal heart sound present and S2 normal heart sound present GI Inspection: Yes normal to inspection and Yes other (presence of diastasis recti) Palpation (GI): Soft to palpation Auscultation: normal bowel sounds General: Yes no CVA tenderness Male General Exam: Yes normal external exam Back/Spine/Pelvis Back: no CVA tenderness and No back tenderness Thoracic/Lumbar Spine: thoraco-lumbar ROM normal and straight leg raise negative bilaterally Skin General skin exam: no rashes or lesions noted Neuro General: patient oriented x3, gait normal, tone normal, moves all extremities, Normal light touch and pain sensation, no focal motor deficits and CN's II-XI intact bilaterally Cranial nerves: Yes Equal, round and reactive pupils present Cognition (Neuro): normal cognition Gait exam (Neuro): Normal gait present Motor exam (neuro): 5/5 motor strength present throughout Extrem General: Yes normal to inspection, Yes full ROM, Yes no pedal edema and Yes normal gait Psych Appearance: grossly normal and well kempt Mental Status: mental status grossly normal Affect: normal affect Coding Level of Care Code Est Pt Level 4 (93331) Diagnoses Muscle strain of chest wall, subsequent encounter S29.011D Encounter type: subsequent encounter Low serum testosterone level in male R79.89 Mixed dyslipidemia E78.2 Assessment & Plan Assessment & Plan (1) Muscle strain of chest wall: Code(s): S29.011A - Strain of muscle and tendon of front wall of thorax, initial encounter Category: Medical Qualifiers: Encounter type: subsequent encounter Qualified Code(s): S29.011D - Strain of muscle and tendon of front wall of thorax, subsequent encounter Plan: Advised to try massaging absorbine yrn to anterior chest wall to help relieve muscle pain or may try applying Salonpas patch to affected area on chest (2) Low serum testosterone level in male: Code(s): R79.89 - Other specified abnormal findings of blood chemistry Category: Medical Plan: Repeat total and free testosterone level (3) Mixed dyslipidemia: Code(s): E78.2 - Mixed hyperlipidemia Category: Medical Plan: Fasting lipid panel ordered, currently on rosuvastatin 10 mg daily and [place] 3 fatty acid supplements 2 capsules twice a day Orders: Orders Hemoglobin A1c 06/22/24 D51.0 - Vitamin B12 deficiency anemia due to intrinsic factor deficiency, E11.9 - Type 2 diabetes mellitus without complications, E66.9 - Obesity, unspecified, E78.2 - Mixed hyperlipidemia, N52.9 - Male erectile dysfunction, unspecified, R79.89 - Other specified abnormal findings of blood chemistry, Z86.39 - Personal history of other endocrine, nutritional and metabolic disease Testosterone, Free/Total 06/22/24 D51.0 - Vitamin B12 deficiency anemia due to intrinsic factor deficiency, E11.9 - Type 2 diabetes mellitus without complications, E66.9 - Obesity, unspecified, E78.2 - Mixed hyperlipidemia, N52.9 - Male erectile dysfunction, unspecified, R79.89 - Other specified abnormal findings of blood chemistry, Z86.39 - Personal history of other endocrine, nutritional and metabolic disease Vitamin D 25-OH Total 06/22/24 D51.0 - Vitamin B12 deficiency anemia due to intrinsic factor deficiency, E11.9 - Type 2 diabetes mellitus without complications, E66.9 - Obesity, unspecified, E78.2 - Mixed hyperlipidemia, N52.9 - Male erectile dysfunction, unspecified, R79.89 - Other specified abnormal findings of blood chemistry, Z86.39 - Personal history of other endocrine, nutritional and metabolic disease Microalbumin, Random (w Creat) 06/22/24 D51.0 - Vitamin B12 deficiency anemia due to intrinsic factor deficiency, E11.9 - Type 2 diabetes mellitus without complications, E66.9 - Obesity, unspecified, E78.2 - Mixed hyperlipidemia, N52.9 - Male erectile dysfunction, unspecified, R79.89 - Other specified abnormal findings of blood chemistry, Z86.39 - Personal history of other endocrine, nutritional and metabolic disease Lipid Panel 06/22/24 D51.0 - Vitamin B12 deficiency anemia due to intrinsic factor deficiency, E11.9 - Type 2 diabetes mellitus without complications, E66.9 - Obesity, unspecified, E78.2 - Mixed hyperlipidemia, N52.9 - Male erectile dysfunction, unspecified, R79.89 - Other specified abnormal findings of blood chemistry, Z86.39 - Personal history of other endocrine, nutritional and metabolic disease PSA,Total (Free>4and<10) 06/22/24 D51.0 - Vitamin B12 deficiency anemia due to intrinsic factor deficiency, E11.9 - Type 2 diabetes mellitus without complications, E66.9 - Obesity, unspecified, E78.2 - Mixed hyperlipidemia, N52.9 - Male erectile dysfunction, unspecified, R79.89 - Other specified abnormal findings of blood chemistry, Z86.39 - Personal history of other endocrine, nutritional and metabolic disease Vitamin B12 and Folate 06/22/24 D51.0 - Vitamin B12 deficiency anemia due to intrinsic factor deficiency, E11.9 - Type 2 diabetes mellitus without complications, E66.9 - Obesity, unspecified, E78.2 - Mixed hyperlipidemia, N52.9 - Male erectile dysfunction, unspecified, R79.89 - Other specified abnormal findings of blood chemistry, Z86.39 - Personal history of other endocrine, n utritional and metabolic disease
[2024-06-22 11:00] VITALS: BP 138/68; PULSE 62; RESP 14; TEMP 36.8; O2SAT 96; BMI 32.2
== END 2024-06-22 11:51 | disposition home or self-care (01) ==
LOC: HO.HMCC 10:32
PROVIDERS: PCP Internal Medicine; Visit Provider Internal Medicine
DX: S29.011D Strain of muscle and tendon of front wall of thorax, subsequent encounter (principal); R79.89 Other specified abnormal findings of blood chemistry; E78.2 Mixed hyperlipidemia

== ENCOUNTER → 2024-08-05 19:30 | Outpatient (REF) | payer OTHER, SELFPAY | LOC: HO.SL 19:30 | PROVIDERS: PCP Internal Medicine; Visit Provider Internal Medicine | DX: G47.33 Obstructive sleep apnea (adult) (pediatric) (principal); Z99.89 Dependence on other enabling machines and devices | CPT/HCPCS: 95810 ==

== ENCOUNTER → 2024-08-05 20:44 | Outpatient (BNV) | payer OTHER, SELFPAY | PROVIDERS: PCP Internal Medicine; Visit Provider Internal Medicine | DX: G47.33 Obstructive sleep apnea (adult) (pediatric) (principal); G47.61 Periodic limb movement disorder | CPT/HCPCS: 95810 ==

== ENCOUNTER 2024-08-11 11:35 | Outpatient (AMB) | payer OTHER, SELFPAY ==
[2024-08-11 12:48] VITALS: BP 134/92; PULSE 61; RESP 17; O2SAT 96; BMI 32.3
--- NOTE | 2024-08-11 12:48 | MHC.PC.OV ---
Vital Signs 08/11/24 12:48 Height 5 ft 8 in Weight 212 lb 6 oz BMI 32.3 BP 134/92 H Blood Pressure Location Lt brachial Position Sitting Respiration 17 Pulse 61 Pulse Source Pulse Oximeter Pulse Oximetry (%) 96 Oxygen Delivery Method Room Air Intake Visit Reasons: 6 months follow up Intake Note: Pt is here today for 6 month follow up. Allergies amoxicillin Adverse Reaction (Mild, Verified 08/11/24 13:06) Stomach Upset Medication List - Last Reconciled 08/11/24 by Christy Rivera MD blood sugar diagnostic As directed cholecalciferol (vitamin D3) 50 mcg PO DAILY citalopram 20 mg PO DAILY cyanocobalamin (vitamin B-12) ER 1,000 mcg PO DAILY lisinopril 5 mg PO DAILY metformin 1,000 mg PO DAILY omega-3 acid ethyl esters 2 caps PO BID 90 days rosuvastatin 10 mg PO DAILY Tobacco use date assessed: 08/11/24 Fall risk assessment: No Falls in past year Last assessed Fall Risk: 08/11/24 Dental Screening Dental Screen Date: 08/11/24 Did you have a dental visit in the last 12 months?: Yes Did you have a dental problem in the last 6 months where you did not have access to dental care?: No Was dental information given to patient?: Patient has dentist HPI 6 months follow up HPI Details 63-year-old male here today for follow-up on his hypertension, type 2 diabetes mellitus, mixed dyslipidemia and generalized anxiety disorder. He has been compliant with taking his medications, but has not been paying attention to his diet or getting any regular exercise. His son recently passed unexpectedly and patient is still trying to process with his recent loss. He is taking citalopram 20 mg daily, but does not want referral to a grief counselor, states that he has his family and friends for support. 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 Erectile dysfunction Obesity (BMI 30-39.9) RADHA on CPAP Generalized anxiety disorder Pernicious anemia Essential hypertension Type 2 diabetes mellitus without complication, with no history of insulin use Mixed dyslipidemia Surgical History Hx of colonoscopy H/O shoulder surgery History of cataract surgery History of carpal tunnel surgery Status post cervical discectomy Family History Father Diabetes mellitus Atherosclerotic coronary vascular disease Prostate cancer Social History Housing: House Alcohol intake: current Alcohol intake frequency: a few times a month Patient Tobacco Use Status: Former Tobacco user Years Smoked: 5 yrs e-Cigarette/Vaping Use: Never Used Substance Use Type: Marijuana service: No Current occupational status: disabled Cognitive needs: No Hearing needs: No Vision needs: No Questionnaire PHQ-9 Over the last 2 weeks, how often have you been bothered by any of the following problems? 1. Little interest or pleasure in doing things: not at all 2. Feeling down, depressed, or hopeless: not at all Depression Screening Interpretation: Negative Depression Screening Done: Yes Source: Developed by Drs. Rehan Shi, Lynda Booth, Kit Brush and colleagues, with an educational miesha from [employer]. Thrive Questionnaire Date Thrive assessed: 08/11/24 I am a: Patient What is your living situation today?: I have a steady place to live Within the past 12 months, did the food you bought not last and you didn't have the money to get more?: Never true Within the past 12 months, did you worry whether your food would run out before you got money to buy more?: Never true Do you have trouble paying for medicines?: No Do you have trouble getting transportation to medical appointments?: No Do you have trouble paying your heating and electricity bill?: No Do you have trouble taking care of your child, family member or friend?: No Do you have trouble with day-to-day activities such as bathing, preparing meals, shopping, managing finances, etc.?: Yes Are you currently unemployed and looking for a job?: No Are you interested in more education?: No Please select the resources that you would like help with: None Currently or been in a relationship where the following occur: No concerns reported THRIVE Score: 0 AUDIT C Alcohol Use Questionnaire (AUDIT-C) 1. How often do you have a drink containing alcohol?: Monthly or less 2. How many drinks containing alcohol do you have on a typical day when you are drinking?: 1 or 2 3. How often do you have six or more drinks on one occasion?: Never Total Score: 1 Score Reviewed/Action Taken: Yes LESLIE-7 AMB Questionnaire LESLIE-7 Date LESLIE - 7 assessed: 08/11/24 Feeling nervous, anxious, or on edge: 0 = Not at all Worrying too much about different things: 0 = Not at all Trouble relaxin = Not at all Being so restless that it is hard to sit still: 0 = Not at all Becoming easily annoyed or irritable: 1 = Several days Feeling afraid as if something awful might happen: 1 = Several days Source: Developed by Drs. Rehan Shi, Lynda Booth, Kit Brush and colleagues, with an educational miesha from [employer]. LESLIE-7 Assessment Billing LESLIE-7 Assessment Tool: LESLIE-7 Assessment 10866 Review of Systems Const Denies body aches, Denies fatigue, Denies fever(s), Denies headache(s) and Denies weight loss Eyes Details: Sees Dr. Gandara, diagnosed with dry eye ENT Denies dizziness and Denies headache(s) Card Denies chest pain, Denies lightheadedness, Denies palpitations and Denies dyspnea Resp Denies chest congestion, Denies cough, Denies dyspnea and Denies wheezing GI Denies abdominal pain, Denies change in bowel habits and Denies heartburn Denies dysuria, Denies urinary frequency and Denies urinary urgency Musc Denies back pain, Denies myalgias, Denies arthralgias, Denies joint swelling and Denies limited range of motion Skin/Breast Denies lesions and Denies rash Neuro Denies dizziness and Denies headache(s) Psych Reports no additional complaints Endo Denies fatigue, Denies polydipsia, Denies polyuria and Denies palpitations Aller/Immun Denies seasonal rhinorrhea and Denies wheezing Physical exam (Primary Care) Vital Signs: Last Vital Signs Pulse 61 08/11/24 12:48 Resp 17 08/11/24 12:48 BP 134/92 H 08/11/24 12:48 Pulse Ox 96 08/11/24 12:48 Oxygen Delivery Method Room Air 08/11/24 12:48 BMI result Body Mass Index 32.3 Tobacco/Smoking Status: Tobacco use Status Tobacco use date assessed 08/11/24 08/11/24 12:52 Patient Tobacco Use Status Former Tobacco user 08/11/24 12:50 e-Cigarette/Vaping Use Never Used 08/11/24 12:50 Depression Screening Interpretation: Negative Thrive Assessment: Date of Thrive Assessment Date Thrive assessed 08/11/24 08/11/24 12:52 Currently or been in a relationship where the following occur: No concerns reported Const General: no acute distress and alert Nutritional Appearance: obese Orientation/consciousness: patient oriented x3 HENMT Ears: external ears normal General nose exam: Normal external nose present Mouth: Normal oral and palatal mucosa present, tongue normal, oropharynx normal and moist mucous membranes Eyes Conjunctivae: conjunctivae normal Sclerae: sclerae normal Pupils: Equal, round and reactive pupils present EOM: EOMs intact bilaterally Neck Neck: Yes full ROM and Yes no lymphadenopathy Thyroid: Thyroid normal Resp Effort & Inspection: normal respiratory effort and able to speak in complete sentences Auscultation: clear to auscultation bilaterally Cardio Rate: regular rate Rhythm: regular rhythm Heart sounds: S1 normal heart sound present and S2 normal heart sound present GI Inspection: Yes normal to inspection and Yes other (presence of diastasis recti) Palpation (GI): Soft to palpation Auscultation: normal bowel sounds Male General Exam: Yes normal external exam Back/Spine/Pelvis Back: No back tenderness Neuro General: patient oriented x3, gait normal, tone normal, moves all extremities, Normal light touch and pain sensation, no focal motor deficits and CN's II-XI intact bilaterally Cranial nerves: Yes Equal, round and reactive pupils present Cognition (Neuro): normal cognition Gait exam (Neuro): Normal gait present Motor exam (neuro): 5/5 motor strength present throughout Extrem General: Yes normal to inspection, Yes full ROM, Yes no pedal edema and Yes normal gait Psych Appearance: grossly normal and well kempt Mental Status: mental status grossly normal Affect: Sad affect present Results Reviewed Results Reviewed: Name: Beck Sagastume Age/Sex: 63/M : 1960 Unit#: [id number] Attend Dr: Matthew Bower DO Re06/15/24 Status: [facility] Disch: SPEC : [id number] JAMAL: 06/15/24-100 STATUS: COMP REQ : [id number] RECD: 06/15/24 [facility] DR: Ryne Rebolledo MD COMP: 06/15/24 ENTERED: 06/15/24 [facility] DR: Christy Rivera MD ORDERED: CBC Auto Diff Test Result Flag Reference WBC 7.3 4.8-10.8 X10*3/uL RBC 4.74 4.60-5.80 X10*6/uL HGB 14.6 14.0-18.0 g/dl HCT 41.9 L 42.0-52.0 % MCV 88.4 80.0-98.0 fL MCH 30.8 27.0-33.0 pg MCHC 34.8 31.0-36.0 g/dl RDW 12.5 11.0-16.0 % PLT 228 160-400 X10*3/uL MPV 9.8 9.4-12.4 fL Neut Pct Auto 55.7 45-73 % ImGran Pct Auto 0.3 0.0-0.4 % Lymp Pct Auto 35.4 20-40 % [place] Pct Auto 6.5 2-11 % Eos Pct Auto 1.8 0-4 % Baso Pct Auto 0.3 0-2 % NRBC Pct Auto 0.0 0.0-0.2 /100WBC ANC Neut Abs # 4.1 2.0-8.3 x10*3/uL ImGran Abs Auto 0.02 0.00-0.03 X10*3/uL Lymph Abs Auto 2.6 1.2-4.9 X10*3/uL [place] Abs Auto 0.5 0.1-1.2 X10*3/uL Eos Abs Auto 0.1 0.0-0.4 X10*3/uL Baso Abs Auto 0.0 0.0-0.2 X10*3/uL NRBC Abs Auto 0.000 0.0-0.012 X10*3/uL Name: Beck Sagastume Mandy Age/Sex: 63/M : 1960 Unit#: [id number] Attend Dr: Matthew Bower DO Re06/15/24 Status: DEP ER Location: .ED Disch: SPEC : [id number] JAMAL: 06/15/24-1000 STATUS: COMP REQ : [id number] RECD: 06/15/24-[address]: Ryne Rebolledo MD COMP: 06/15/24-1020 ENTERED: 06/15/24-954 [facility] DR: Christy Rivera MD ORDERED: CMP Test Result Flag Reference Sodium 140 135-145 mmol/L Potassium 4.6 3.3-5.1 mmol/L CL 105 96-108 mmol/L CO2 26 22-29 mmol/L Gap 14 12-20 BUN 18 H 9-16 mg/dL Creat 0.90 0.5-1.4 mg/dL Estimated CrCl 91.8 eGFR (calculated from the MDRD study equation) and eCrCl (calculated from the Cockcroft-Gault equation) are based on different parameters and may not yield comparable results. If eCrCl result is absurd, please check patient's height/weight. eGFR > 60 Chronic Kidney Disease: Estimated GFR < 60 mL/min/1.73m2 Severe Kidney Disease: Estimated GFR < 15 mL/min/1.73m2 Glucose, Random 106 60-115 mg/dL CA 9.7 8.4-10.2 mg/dL Total Bili 1.1 H 0.0-1.0 mg/dL AST (GOT) 23 5-37 U/L ALT (GPT) 22 0-40 U/L Protein, Total 8.2 H 6.5-8.0 g/dL Alb 4.7 3.5-5.0 g/dL Alk Phos 56 39-117 U/L Laboratory Tests 01/03/23 06/22/24 11:30 11:53 Estimat Average Glucose 134 Hgb A1c (Clinic) 6.0 Hemoglobin A1c % 6.3 H Name: Beck Sagastume Age/Sex: 63/M : 1960 Unit#: [id number] Attend Dr: Christy Rivera MD Re06/22/24 Status: DEP REF Location: [facility] Disch: SPEC : [id number] JAMAL: 06/22/24-1152 STATUS: COMP REQ : [id number] RECD: 06/22/24-[address]: Christy Rivera MD COMP: 06/22/24-1428 ENTERED: 06/22/24-[address]53 [facility] DR: ORDERED: Lipid Panel, Vitamin D 25-OH Test Result Flag Reference Triglyceride 555 H <150 mg/dL Slight Lipemia. Desirable Triglyceride: less than 150 mg/dL Borderline High Triglyceride 150-199 mg/dL High Triglyceride: 200-499 mg/dL Very High Triglyceride: greater than or equal to 5OO mg/dL Cholesterol 202 H <200 mg/dL Desirable Cholesterol: less than 200 mg/dL Borderline High Cholesterol: 200-239 mg/dL High Cholesterol: greater than 239 mg/dL LDL Calculated Test not performed <100 mg/dL Unable to calculate the LDL. The formula of Friedwald Arevalo, and Estephanie is only valid if the triglycerides are less than 400 mg/dl. HDL 32 L >40 mg/dL Desirable HDL: greater than 40 mg/dL Note: This HDL assay may give artificially low results in patients with liver disease. Vit D 25-OH Tot 54.3 >30 ng/mL Health Based Reference Values* < 20 ng/mL Deficient 20-30 ng/mL Insufficient > 30 ng/mL Sufficient Laboratory Tests 06/22/24 11:53 Urine Creatinine 100.62 Urine Microalbumin 162.0 Microalb/Creat Ratio 161.0 H Coding Level of Care Code Est Pt Level 4 (30316) Complex EM visit Add On G2211 Diagnoses Mixed dyslipidemia E78.2 Type 2 diabetes mellitus without complication, with no history of insulin use E11.9 Essential hypertension I10 Pernicious anemia D51.0 RADHA on CPAP G47.33; Z99.89 Low serum testosterone level in male R79.89 Grief reaction F43.20 Additional Codes LESLIE-7 Assessment Billing - LESLIE-7 Assessment Tool: LESLIE-7 Assessment 52604 ([id number]) Assessment & Plan Assessment & Plan (1) Mixed dyslipidemia: Code(s): E78.2 - Mixed hyperlipidemia Category: Medical Plan: Fasting lipids showed marked elevation in his triglycerides, will continue on rosuvastatin same dose 10 mg daily and reinforced importance of taking [place] 3 fatty acid supplements 2 capsules twice a day. Stressed importance of following a low-cholesterol diet and getting regular exercise. Will repeat another fasting lipid panel in six-months (2) Type 2 diabetes mellitus without complication, with no history of insulin use: Code(s): E11.9 - Type 2 diabetes mellitus without complications Category: Medical Plan: Diabetes mellitus controlled, with current dose of metformin a 1000 mg taken once a day, . Microalbumin however is markedly elevated. (3) Essential hypertension: Code(s): I10 - Essential (primary) hypertension Category: Medical Plan: Blood pressure at goal of less than 130/80. Continue with current medication. Reinforced importance of following a low sodium diet, getting regular exercise, and lowering stress levels. (4) Pernicious anemia: Code(s): D51.0 - Vitamin B12 deficiency anemia due to intrinsic factor deficiency Category: Medical Plan: CBC done recently showed results within normal limits (5) RADHA on CPAP: Code(s): G47.33 - Obstructive sleep apnea (adult) (pediatric); Z99.89 - Dependence on other enabling machines and devices Category: Medical Plan: Unable to tolerate CPAP (6) Low serum testosterone level in male: Code(s): R79.89 - Other specified abnormal findings of blood chemistry Category: Medical Plan: Stressed importance of following up with Urology (7) Grief reaction: Code(s): F43.20 - Adjustment disorder, unspecified Plan: Patient to be continued on citalopram, declined referral for counseling Orders: Orders Microalbumin, Random (w Creat) 01/12/25 D51.0 - Vitamin B12 deficiency anemia due to intrinsic factor deficiency, E11.9 - Type 2 diabetes mellitus without complications, E66.9 - Obesity, unspecified, E78.2 - Mixed hyperlipidemia, F43.20 - Adjustment disorder, unspecified, G47.33 - Obstructive sleep apnea (adult) (pediatric), I10 - Essential (primary) hypertension, R79.89 - Other specified abnormal findings of blood chemistry, Z99.89 - Dependence on other enabling machines and devices Lipid Panel 01/12/25 D51.0 - Vitamin B12 deficiency anemia due to intrinsic factor deficiency, E11.9 - Type 2 diabetes mellitus without complications, E66.9 - Obesity, unspecified, E78.2 - Mixed hyperlipidemia, F43.20 - Adjustment disorder, unspecified, G47.33 - Obstructive sleep apnea (adult) (pediatric), I10 - Essential (primary) hypertension, R79.89 - Other specified abnormal findings of blood chemistry, Z99.89 - Dependence on other enabling machines and devices Comprehensive [place]. Panel Fast 01/12/25 D51.0 - Vitamin B12 deficiency anemia due to intrinsic factor deficiency, E11.9 - Type 2 diabetes mellitus without complications, E66.9 - Obesity, unspecified, E78.2 - Mixed hyperlipidemia, F43.20 - Adjustment disorder, unspecified, G47.33 - Obstructive sleep apnea (adult) (pediatric), I10 - Essential (primary) hypertension, R79.89 - Other specified abnormal findings of blood chemistry, Z99.89 - Dependence on other enabling machines and devices Testosterone, Free/Total 01/12/25 D51.0 - Vitamin B12 deficiency anemia due to intrinsic factor deficiency, E11.9 - Type 2 diabetes mellitus without complications, E66.9 - Obesity, unspecified, E78.2 - Mixed hyperlipidemia, F43.20 - Adjustment disorder, unspecified, G47.33 - Obstructive sleep apnea (adult) (pediatric), I10 - Essential (primary) hypertension, R79.89 - Other specified abnormal findings of blood chemistry, Z99.89 - Dependence on other enabling machines and devices Hemoglobin A1c 01/12/25 D51.0 - Vitamin B12 deficiency anemia due to intrinsic factor deficiency, E11.9 - Type 2 diabetes mellitus without complications, E66.9 - Obesity, unspecified, E78.2 - Mixed hyperlipidemia, F43.20 - Adjustment disorder, unspecified, G47.33 - Obstructive sleep apnea (adult) (pediatric), I10 - Essential (primary) hypertension, R79.89 - Other specified abnormal findings of blood chemistry, Z99.89 - Dependence on other enabling machines and devices LDL Cholesterol Direct 01/12/25 D51.0 - Vitamin B12 deficiency anemia due to intrinsic factor deficiency, E11.9 - Type 2 diabetes mellitus without complications, E66.9 - Obesity, unspecified, E78.2 - Mixed hyperlipidemia, F43.20 - Adjustment disorder, unspecified, G47.33 - Obstructive sleep apnea (adult) (pediatric), I10 - Essential (primary) hypertension, R79.89 - Other specified abnormal findings of blood chemistry, Z99.89 - Dependence on other enabling machines and devices Vitamin D 25-OH Total 01/12/25 D51.0 - Vitamin B12 deficiency anemia due to intrinsic factor deficiency, E11.9 - Type 2 diabetes mellitus without complications, E66.9 - Obesity, unspecified, E78.2 - Mixed hyperlipidemia, F43.20 - Adjustment disorder, unspecified, G47.33 - Obstructive sleep apnea (adult) (pediatric), I10 - Essential (primary) hypertension, R79.89 - Other specified abnormal findings of blood chemistry, Z99.89 - Dependence on other enabling machines and devices
== END 2024-08-11 14:53 | disposition home or self-care (01) ==
LOC: HO.HMCC 11:36
PROVIDERS: PCP Internal Medicine; Visit Provider Internal Medicine
DX: E78.2 Mixed hyperlipidemia (principal); E11.9 Type 2 diabetes mellitus without complications; I10 Essential (primary) hypertension; D51.0 Vitamin B12 deficiency anemia due to intrinsic factor deficiency; G47.33 Obstructive sleep apnea (adult) (pediatric); Z99.89 Dependence on other enabling machines and devices; R79.89 Other specified abnormal findings of blood chemistry; F43.20 Adjustment disorder, unspecified

== ENCOUNTER → 2024-08-11 11:35 | Outpatient (BNVA) | payer OTHER, SELFPAY | PROVIDERS: PCP Internal Medicine; Visit Provider Internal Medicine | DX: I10 Essential (primary) hypertension (principal); E11.9 Type 2 diabetes mellitus without complications; E78.2 Mixed hyperlipidemia; F41.1 Generalized anxiety disorder; D51.0 Vitamin B12 deficiency anemia due to intrinsic factor deficiency; G47.33 Obstructive sleep apnea (adult) (pediatric); R79.89 Other specified abnormal findings of blood chemistry; F43.20 Adjustment disorder, unspecified; Z99.89 Dependence on other enabling machines and devices | CPT/HCPCS: 96127; 99212 ==

== ENCOUNTER 2025-03-07 06:56 | Outpatient (REF) | payer OTHER, SELFPAY ==
[2025-03-07 10:32] LABS: Alanine Aminotransferase 23 U/L (0-40); Albumin Level 4.8 g/dL (3.5-5.0); Alkaline Phosphatase 54 U/L (39-117); Anion Gap 13 (12-20); Aspartate Amino Transferase 26 U/L (5-37); Blood Urea Nitrogen 20 mg/dL (9-16); Calcium 9.6 mg/dL (8.4-10.2); Carbon Dioxide 26 mmol/L (22-29); Chloride 106 mmol/L (96-108); Cholesterol 226 mg/dL (<200); Estimated Glomerular Filt Rate > 60; HDL Cholesterol 38 mg/dL (>40); Potassium 4.5 mmol/L (3.3-5.1); Sodium 140 mmol/L (135-145); Total Protein 7.5 g/dL (6.5-8.0); Triglycerides 326 mg/dL (<150)
[2025-03-07 11:08] LABS: Microalbum/Creatinine Ratio Ur 163.5 ug/mg cr (<30)
[2025-03-13 14:08] LABS: Testosterone, Free 41.3 pg/mL (35.0-155.0)
== END 2025-03-07 06:57 | disposition home or self-care (01) ==
LOC: HO.HMGCLDS 06:56
PROVIDERS: PCP Internal Medicine; Visit Provider Internal Medicine
DX: E11.69 Type 2 diabetes mellitus with other specified complication (principal); G47.33 Obstructive sleep apnea (adult) (pediatric); E78.2 Mixed hyperlipidemia; D51.0 Vitamin B12 deficiency anemia due to intrinsic factor deficiency; E66.9 Obesity, unspecified; R79.89 Other specified abnormal findings of blood chemistry; F43.20 Adjustment disorder, unspecified; I10 Essential (primary) hypertension; Z13.21 Encounter for screening for nutritional disorder; Z99.89 Dependence on other enabling machines and devices
CPT/HCPCS: 36415; 80053; 80061; 82043; 82306; 82570; 83036; 83721; 84402; 84403

== ENCOUNTER 2025-03-15 10:19 | Outpatient (AMB) | payer OTHER, SELFPAY ==
--- NOTE | 2025-03-15 10:24 | MHC.PC.OV ---
Vital Signs 03/15/25 10:32 Height 5 ft 8 in Weight 210 lb BMI 31.9 BP 140/84 H Blood Pressure Location Lt brachial Position Sitting Respiration 16 Pulse 62 Pulse Source Pulse Oximeter Temp 97.8 F Temp Source Oral Pulse Oximetry (%) 96 Oxygen Delivery Method Room Air Intake Visit Reasons: followup meds, labs- due for A1C Intake Note: Pt is here today for his f/u labs Dictating Machine Typist Required: No Allergies amoxicillin Adverse Reaction (Mild, Verified 03/15/25 10:46) Stomach Upset Medication List - Last Reconciled 03/15/25 by Christy Rivera MD blood sugar diagnostic As directed cholecalciferol (vitamin D3) 50 mcg PO DAILY citalopram 20 mg PO DAILY cyanocobalamin (vitamin B-12) ER 1,000 mcg PO DAILY lisinopril 5 mg PO DAILY metformin 1,000 mg PO DAILY omega-3 acid ethyl esters 2 caps PO BID 90 days rosuvastatin 10 mg PO DAILY Tobacco use date assessed: 03/15/25 Fall risk assessment: No Falls in past year Last assessed Fall Risk: 03/15/25 Dental Screening Dental Screen Date: 03/15/25 Did you have a dental visit in the last 12 months?: Yes Did you have a dental problem in the last 6 months where you did not have access to dental care?: No Was dental information given to patient?: Patient has dentist HPI followup meds, labs- due for A1C HPI Details The patient is a 64 year old individual presenting for a follow-up visit The patient has a history of type 2 diabetes mellitus, with a recent hemoglobin A1c of 6.1, improved from 6.3 previously, and a morning glucose of 112. The patient is currently on metformin 1000 mg once daily. Despite controlled glucose, lab results show persistent proteinuria, indicative of kidney involvement. The patient reports being up to date on eye exams, which have shown no evidence of diabetic retinopathy. For hyperlipidemia, the patient is on rosuvastatin and has been taking one capsule of omega-3 daily, with a plan to increase the dose. Other medical history includes sleep apnea, for which the patient has been using a CPAP for 15-20 years with good effect. The patient takes citalopram and has experienced increased depression recently due to the of the patient's son. Regarding preventative care, the patient is up to date on the shingles vaccine but has not received this year's flu or pneumonia shots. The patient also follows with urology. [facility] Medical History (Updated 03/15/25 @ 11:04 by Christy Rivera MD) Diabetes mellitus with microalbuminuria, without long-term current use of insulin Low serum testosterone level in male Erectile dysfunction Obesity (BMI 30-39.9) RADHA on CPAP Generalized anxiety disorder Pernicious anemia Essential hypertension Mixed dyslipidemia Surgical History Hx of colonoscopy H/O shoulder surgery History of cataract surgery History of carpal tunnel surgery Status post cervical discectomy Family History Father Diabetes mellitus Atherosclerotic coronary vascular disease Prostate cancer Social History Housing: House Alcohol intake: current Alcohol intake frequency: a few times a month Patient Tobacco Use Status: Former Tobacco user Years Smoked: 5 yrs e-Cigarette/Vaping Use: Never Used Substance Use Type: Marijuana service: No Current occupational status: disabled Cognitive needs: No Hearing needs: No Vision needs: No Questionnaire PHQ-9 Over the last 2 weeks, how often have you been bothered by any of the following problems? 1. Little interest or pleasure in doing things: not at all 2. Feeling down, depressed, or hopeless: several days 3. Trouble falling or staying asleep, or sleeping too much: several days 4. Feeling tired or having little energy: not at all 5. Poor appetite or overeating: not at all 6. Feeling bad about yourself - or that you are a failure or have let yourself or your family down: not at all 7. Trouble concentrating on things, such as reading the newspaper or watching television: not at all 8. Moving or speaking so slowly that other people could have noticed. Or the opposite - being so fidgety or restless that you have been moving around a lot more than usual: not at all 9. Thoughts that you would be better off or of hurting yourself in some way: not at all Total score: 2 Depression Screening Interpretation: Positive (on citalopram) Depression Screening Follow-up: Existing condition and In treatment Depression Screening Done: Yes Source: Developed by Drs. Rehan Shi, Kit Sharif and colleagues, with an educational miesha from [employer]. Thrive Questionnaire Date Thrive assessed: 08/04/24 I am a: Patient What is your living situation today?: I have a steady place to live Within the past 12 months, did the food you bought not last and you didn't have the money to get more?: Never true Within the past 12 months, did you worry whether your food would run out before you got money to buy more?: Never true Do you have trouble paying for medicines?: No Do you have trouble getting transportation to medical appointments?: No Do you have trouble paying your heating and electricity bill?: No Do you have trouble taking care of your child, family member or friend?: No Do you have trouble with day-to-day activities such as bathing, preparing meals, shopping, managing finances, etc.?: Yes Are you currently unemployed and looking for a job?: No Are you interested in more education?: No Please select the resources that you would like help with: None Currently or been in a relationship where the following occur: No concerns reported THRIVE Score: 0 AUDIT C Alcohol Use Questionnaire (AUDIT-C) 1. How often do you have a drink containing alcohol?: Monthly or less 2. How many drinks containing alcohol do you have on a typical day when you are drinking?: 1 or 2 3. How often do you have six or more drinks on one occasion?: Never Total Score: 1 LESLIE-7 AMB Questionnaire LESLIE-7 Date LESLIE - 7 assessed: 08/11/24 Feeling nervous, anxious, or on edge: 0 = Not at all Not being able to stop or control worryin = Not at all Worrying too much about different things: 0 = Not at all Trouble relaxin = Not at all Being so restless that it is hard to sit still: 0 = Not at all Becoming easily annoyed or irritable: 1 = Several days Feeling afraid as if something awful might happen: 1 = Several days Total LESLIE-7 score (0-4 normal; 5-9 mild; 10-14 moderate; 15-21 severe): 2 Source: Developed by Lynda Gaona Leobardo, Kit Brsuh and colleagues, with an educational miesha from [employer]. Review of Systems Const Denies body aches, Denies fatigue, Denies fever(s), Denies headache(s) and Denies weight loss Eyes Details: Sees Dr. Gandara, diagnosed with dry eye ENT Denies dizziness and Denies headache(s) Card Denies chest pain, Denies lightheadedness, Denies palpitations and Denies dyspnea Resp Denies chest congestion, Denies cough, Denies dyspnea and Denies wheezing GI Denies abdominal pain, Denies change in bowel habits and Denies heartburn Denies dysuria, Denies urinary frequency and Denies urinary urgency Musc Denies back pain, Denies myalgias, Denies arthralgias, Denies joint swelling and Denies limited range of motion Skin/Breast Denies lesions and Denies rash Neuro Denies dizziness and Denies headache(s) Psych Reports no additional complaints Endo Denies fatigue, Denies polydipsia, Denies polyuria and Denies palpitations Aller/Immun Denies seasonal rhinorrhea and Denies wheezing Physical exam (Primary Care) Vital Signs: Last Vital Signs Temp 97.8 F 03/15/25 10:32 Pulse 62 03/15/25 10:32 Resp 16 03/15/25 10:32 BP 140/84 H 03/15/25 10:32 Pulse Ox 96 03/15/25 10:32 Oxygen Delivery Method Room Air 03/15/25 10:32 BMI result Body Mass Index 31.9 Tobacco/Smoking Status: Tobacco use Status Tobacco use date assessed 03/15/25 03/15/25 10:40 Patient Tobacco Use Status Former Tobacco user 03/15/25 10:24 e-Cigarette/Vaping Use Never Used 03/15/25 10:24 PHQ-9: PHQ-9 Score PHQ-9: Total score 2 03/15/25 11:00 Depression Screening Interpretation: Positive (on citalopram) Depression Screening Follow-up: Existing condition and In treatment Thrive Assessment: Date of Thrive Assessment Date Thrive assessed 08/04/24 03/15/25 10:24 Currently or been in a relationship where the following occur: No concerns reported Const General: no acute distress and alert Nutritional Appearance: obese Orientation/consciousness: patient oriented x3 HENMT Ears: external ears normal General nose exam: Normal external nose present Mouth: Normal oral and palatal mucosa present and moist mucous membranes Eyes Conjunctivae: conjunctivae normal Sclerae: sclerae normal Pupils: Equal, round and reactive pupils present EOM: EOMs intact bilaterally Neck Neck: Yes full ROM and Yes no lymphadenopathy Resp Effort & Inspection: normal respiratory effort and able to speak in complete sentences Auscultation: clear to auscultation bilaterally Cardio Rate: regular rate Rhythm: regular rhythm Heart sounds: S1 normal heart sound present and S2 normal heart sound present GI Inspection: Yes normal to inspection and Yes other (presence of diastasis recti) Palpation (GI): Soft to palpation Auscultation: normal bowel sounds Male General Exam: Yes normal external exam Back/Spine/Pelvis Back: No back tenderness Neuro General: patient oriented x3, gait normal, moves all extremities and no focal motor deficits Cranial nerves: Yes Equal, round and reactive pupils present Cognition (Neuro): normal cognition Gait exam (Neuro): Normal gait present Motor exam (neuro): 5/5 motor strength present throughout Extrem General: Yes normal to inspection, Yes full ROM, Yes no pedal edema and Yes normal gait Psych Appearance: grossly normal and well kempt Mental Status: mental status grossly normal Affect: Sad affect present Results Reviewed Results Reviewed: Laboratory Tests 03/07/25 03/07/25 07:05 07:10 Estimat Average Glucose 128 Hemoglobin A1c % 6.1 H Urine Creatinine 156.50 Urine Microalbumin 256.0 Microalb/Creat Ratio 163.5 H Name: Beck Sagastume Age/Sex: 64/M : 1960 Unit#: [id number] Attend Dr: Christy Rivera MD Re03/07/25 Status: DEP REF Location: [facility] Disch: SPEC : [id number] JAMAL: 03/07/25 STATUS: COMP REQ : [id number] RECD: 03/07/[address]: Christy Rivera MD COMP: 03/07/25 ENTERED: 03/07/[address]: ORDERED: CMP Fast, Lipid Panel, Vitamin D 25-OH Test Result Flag Reference Sodium 140 135-145 mmol/L Potassium 4.5 3.3-5.1 mmol/L CL 106 96-108 mmol/L CO2 26 22-29 mmol/L Gap 13 12-20 BUN 20 H 9-16 mg/dL Creat 0.92 0.5-1.4 mg/dL eGFR > 60 Chronic Kidney Disease: Estimated GFR < 60 mL/min/1.73m2 Severe Kidney Disease: Estimated GFR < 15 mL/min/1.73m2 FBS 112 H 60-99 mg/dL A fasting glucose from 100-125 mg/dl is considered impaired (pre-diabetes). CA 9.6 8.4-10.2 mg/dL Total Bili 0.9 0.0-1.0 mg/dL AST (GOT) 26 5-37 U/L ALT (GPT) 23 0-40 U/L Protein, Total 7.5 6.5-8.0 g/dL Alb 4.8 3.5-5.0 g/dL Triglyceride 326 H <150 mg/dL Desirable Triglyceride: less than 150 mg/dL Borderline High Triglyceride 150-199 mg/dL High Triglyceride: 200-499 mg/dL Very High Triglyceride: greater than or equal to 5OO mg/dL Cholesterol 226 H <200 mg/dL Desirable Cholesterol: less than 200 mg/dL Borderline High Cholesterol: 200-239 mg/dL High Cholesterol: greater than 239 mg/dL LDL Calculated 123 H <100 mg/dL Desirable LDL: less than 100 mg/dL Near Optimal/Above Optimal LDL: 110-129 mg/dL Borderline High LDL: 130-159 mg/dL High LDL: 160-189 mg/dL Very High LDL: greater than or equal to 190 mg/dL HDL 38 L >40 mg/dL Desirable HDL: greater than 40 mg/dL Note: This HDL assay may give artificially low results in patients with liver disease. Alk Phos 54 39-117 U/L Vitamin D 25-OH 83.7 >30 ng/mL Health Based Reference Values* < 20 ng/mL Deficient 20-30 ng/mL Insufficient > 30 ng/mL Sufficient *Jessie HERNANDEZ. N Engl J Med. 2007;[id number]:266-280 There is no well-established upper level of normal vitamin D levels. Some laboratories use 50 ng/mL as an upper limit of normal. However, toxicity is patient-dependent and may occur at any level. Careful correlation with the patient's presentation is necessary and, if there is concern for vitamin D toxicity, treatment should be considered irrespective of the serum level. Care must be taken in interpreting Vitamin D results from different laboratories and methodologies. Published data demonstrated that results from patients undergoing hemodialysis may show a negative bias when tested with various automated 25-OH vitamin D assays when compared to LC-MS/MS. When testing samples from patients whose predominant form of Vitamin D is Vitamin D2, such as patients receiving Vitamin D2 supplementation, results that are subtherapeutic should be confirmed with another method such as LC-MS/MS. Coding Level of Care Code Est Pt Level 4 (72528) Diagnoses Diabetes mellitus with microalbuminuria, without long-term current use of insulin E11.29; R80.8 Essential hypertension I10 Mixed dyslipidemia E78.2 Generalized anxiety disorder F41.1 RADHA on CPAP G47.33; Z99.89 Assessment & Plan Assessment & Plan (1) Diabetes mellitus with microalbuminuria, without long-term current use of insulin: Code(s): E11.29 - Type 2 diabetes mellitus with other diabetic kidney complication; R80.8 - Other proteinuria Category: Medical Plan: Continue with metformin 1000 mg once a day and added Jardiance 10 mg 1 tablet in the morning, continue with adherence to healthy eating habits and regular exercise (2) Essential hypertension: Code(s): I10 - Essential (primary) hypertension Category: Medical Plan: Blood pressure mildly elevated today. Will continue on lisinopril 5 mg daily and hopefully will improve with the addition of Jardiance (3) Mixed dyslipidemia: Code(s): E78.2 - Mixed hyperlipidemia Category: Medical Plan: Fasting lipid panel showed elevated LDL cholesterol and triglycerides. Continue with [place] 3 fatty acid supplements 2 capsules twice a day and increase rosuvastatin to 10 mg once a day (4) Generalized anxiety disorder: Code(s): F41.1 - Generalized anxiety disorder Category: Medical Plan: Continue with citalopram 20 mg daily (5) RADHA on CPAP: Code(s): G47.33 - Obstructive sleep apnea (adult) (pediatric); Z99.89 - Dependence on other enabling machines and devices Category: Medical Plan: Pt with CPAP stress Orders: Orders Lipid Panel 06/12/25 D51.0 - Vitamin B12 deficiency anemia due to intrinsic factor deficiency, E11.29 - Type 2 diabetes mellitus with other diabetic kidney complication, E66.9 - Obesity, unspecified, E78.2 - Mixed hyperlipidemia, F41.1 - Generalized anxiety disorder, G47.33 - Obstructive sleep apnea (adult) (pediatric), I10 - Essential (primary) hypertension, R80.8 - Other proteinuria, Z99.89 - Dependence on other enabling machines and devices Microalbumin, Random (w Creat) 06/12/25 D51.0 - Vitamin B12 deficiency anemia due to intrinsic factor deficiency, E11.29 - Type 2 diabetes mellitus with other diabetic kidney complication, E66.9 - Obesity, unspecified, E78.2 - Mixed hyperlipidemia, F41.1 - Generalized anxiety disorder, G47.33 - Obstructive sleep apnea (adult) (pediatric), I10 - Essential (primary) hypertension, R80.8 - Other proteinuria, Z99.89 - Dependence on other enabling machines and devices Aspartate Amino Transferase 06/12/25 D51.0 - Vitamin B12 deficiency anemia due to intrinsic factor deficiency, E11.29 - Type 2 diabetes mellitus with other diabetic kidney complication, E66.9 - Obesity, unspecified, E78.2 - Mixed hyperlipidemia, F41.1 - Generalized anxiety disorder, G47.33 - Obstructive sleep apnea (adult) (pediatric), I10 - Essential (primary) hypertension, R80.8 - Other proteinuria, Z99.89 - Dependence on other enabling machines and devices Alanine Aminotransferase 06/12/25 D51.0 - Vitamin B12 deficiency anemia due to intrinsic factor deficiency, E11.29 - Type 2 diabetes mellitus with other diabetic kidney complication, E66.9 - Obesity, unspecified, E78.2 - Mixed hyperlipidemia, F41.1 - Generalized anxiety disorder, G47.33 - Obstructive sleep apnea (adult) (pediatric), I10 - Essential (primary) hypertension, R80.8 - Other proteinuria, Z99.89 - Dependence on other enabling machines and devices Hemoglobin A1c 06/12/25 D51.0 - Vitamin B12 deficiency anemia due to intrinsic factor deficiency, E11.29 - Type 2 diabetes mellitus with other diabetic kidney complication, E66.9 - Obesity, unspecified, E78.2 - Mixed hyperlipidemia, F41.1 - Generalized anxiety disorder, G47.33 - Obstructive sleep apnea (adult) (pediatric), I10 - Essential (primary) hypertension, R80.8 - Other proteinuria, Z99.89 - Dependence on other enabling machines and devices Vitamin B12 and Folate 06/12/25 D51.0 - Vitamin B12 deficiency anemia due to intrinsic factor deficiency, E11.29 - Type 2 diabetes mellitus with other diabetic kidney complication, E66.9 - Obesity, unspecified, E78.2 - Mixed hyperlipidemia, F41.1 - Generalized anxiety disorder, G47.33 - Obstructive sleep apnea (adult) (pediatric), I10 - Essential (primary) hypertension, R80.8 - Other proteinuria, Z99.89 - Dependence on other enabling machines and devices Vitamin D 25-OH Total 06/12/25 D51.0 - Vitamin B12 deficiency anemia due to intrinsic factor deficiency, E11.29 - Type 2 diabetes mellitus with other diabetic kidney complication, E66.9 - Obesity, unspecified, E78.2 - Mixed hyperlipidemia, F41.1 - Generalized anxiety disorder, G47.33 - Obstructive sleep apnea (adult) (pediatric), I10 - Essential (primary) hypertension, R80.8 - Other proteinuria, Z99.89 - Dependence on other enabling machines and devices Basic Metabolic Panel Fasting 06/12/25 D51.0 - Vitamin B12 deficiency anemia due to intrinsic factor deficiency, E11.29 - Type 2 diabetes mellitus with other diabetic kidney complication, E66.9 - Obesity, unspecified, E78.2 - Mixed hyperlipidemia, F41.1 - Generalized anxiety disorder, G47.33 - Obstructive sleep apnea (adult) (pediatric), I10 - Essential (primary) hypertension, R80.8 - Other proteinuria, Z99.89 - Dependence on other enabling machines and devices Medications: New Jardiance (empagliflozin) 10 mg PO QAM 90 tabs 1RF NS E11.29 - Type 2 diabetes mellitus with other diabetic kidney complication, R80.8 - Other proteinuria Refilled metformin 1,000 mg PO DAILY 90 tabs 2RF omega-3 acid ethyl esters 2 caps PO BID 360 caps 1RF 90 days rosuvastatin 10 mg PO DAILY 90 tabs 2RF cholecalciferol (vitamin D3) 50 mcg PO DAILY 90 caps 2RF citalopram 20 mg PO DAILY 90 tabs 2RF cyanocobalamin (vitamin B-12) ER 1,000 mcg PO DAILY 90 tabs 2RF
[2025-03-15 10:32] VITALS: BP 140/84; PULSE 62; RESP 16; TEMP 36.6; O2SAT 96; BMI 31.9
== END 2025-03-15 11:04 | disposition home or self-care (01) ==
LOC: HO.HMCC 10:20
PROVIDERS: PCP Internal Medicine; Visit Provider Internal Medicine
DX: E11.29 Type 2 diabetes mellitus with other diabetic kidney complication (principal); R80.8 Other proteinuria; I10 Essential (primary) hypertension; E78.2 Mixed hyperlipidemia; F41.1 Generalized anxiety disorder; G47.33 Obstructive sleep apnea (adult) (pediatric); Z99.89 Dependence on other enabling machines and devices

== ENCOUNTER → 2025-03-15 10:19 | Outpatient (BNVA) | payer OTHER, SELFPAY | PROVIDERS: PCP Internal Medicine; Visit Provider Internal Medicine | DX: E11.29 Type 2 diabetes mellitus with other diabetic kidney complication (principal); R80.8 Other proteinuria; E78.5 Hyperlipidemia, unspecified; G47.30 Sleep apnea, unspecified; I10 Essential (primary) hypertension; E78.2 Mixed hyperlipidemia; F41.1 Generalized anxiety disorder; G47.33 Obstructive sleep apnea (adult) (pediatric); D51.0 Vitamin B12 deficiency anemia due to intrinsic factor deficiency; Z99.89 Dependence on other enabling machines and devices | CPT/HCPCS: 96127; 99212 ==